=== PATIENT | male | born 1955 | race Caucasian/White ===

== ENCOUNTER 2019-09-30 01:58 | Outpatient (CLI) | payer OTHER, SELFPAY ==
[2019-09-30 18:54] LABS: SARS-CoV-2 RNA PCR Negative
== END 2019-09-30 01:59 | disposition home or self-care (01) ==
LOC: ANHCOVIDDT 01:58
PROVIDERS: PCP Family Medicine; Visit Provider Surgery Plastic and Reconstructive Surgery
DX: Z01.812 Encounter for preprocedural laboratory examination (principal); Z20.828 Contact with and (suspected) exposure to other viral communicable diseases
CPT/HCPCS: 87635; C9803; U0003

== ENCOUNTER 2019-10-02 01:10 | Day surgery (SDC) | payer OTHER, SELFPAY ==
[2019-09-19 11:19] VITALS: BMI 33.9
[2019-10-02] VITALS (7 sets, daily range): BP systolic 99–164; BP diastolic 62–86; PULSE 61–77; RESP 10–20; TEMP 36.1–36.4; O2SAT 96–100
[2019-10-02] MEDS: LACTATED RINGERS 1,000 ML 30 ML IV CONT ×2 (06:29→08:37)
--- NOTE | 2019-10-02 07:08 | WPDHPUPDATE1 ---
History and Physical Update Update Date/Time: 10/02/19 07:08 History and Physical has been reviewed, including an updated exam of the patient. There are NO changes in the patient's condition. Risks, benefits, and alternatives have been discussed and questions answered. Patient agrees to proceed with procedure.
--- NOTE | 2019-10-02 07:12 | WPDANESEPPF ---
Anes - Initial Pre Proc Eval Procedure: Operation Date: 10/02/19 07:30 Proposed Procedures p Left Index Finger Extensor Tendon Repair - Azam Ferris MD Date/Time: 10/02/19 07:12 Surgeon: Azam Ferris MD Pre Op Diagnosis: Left Extensor Tendon Injury Patient Data Age: 64 Gender: M Height: 6 ft Weight: 115.4 kg Allergies Allergy/AdvReac Type Severity Reaction Status Date / Time No Known Allergies Allergy Unknown Verified 10/02/19 06:17 Home Medications Medication Instructions Recorded Confirmed Type budesonide-formoterol HFA 160 2 puff INHALATION DAILY 04/08/19 10/02/19 History mcg-4.5 mcg/actuation aerosol inhaler levothyroxine 125 mcg tablet 125 mcg PO DAILY 04/08/19 10/02/19 History albuterol sulfate 90 mcg/actuation 1 puff INHALATION Q4H PRN #54 gm 05/12/19 10/02/19 Rx aerosol inhaler ondansetron HCl 4 mg tablet 4 mg PO Q6H PRN #30 tablet 09/24/19 Rx tramadol 50 mg tablet 50 mg PO Q6H PRN #15 tablet 09/24/19 09/24/19 Rx Patient hx anesthesia problems: none Family hx anesthesia problems: post op nausea/vomiting (sister) PMF Past Medical History Medical History Allergies Asthma Benign colon polyp Class 1 obesity with body mass index (BMI) of 33.0 to 33.9 in adult Colon cancer screening Compression fracture of lumbosacral spine with routine healing Hypothyroid Hypothyroidism, unspecified Laceration of left index finger with complication Mild intermittent asthma Neuropathy of both feet Obstructive sleep apnea Perianal rash Prostate cancer screening Surgical History Surgical History History of back surgery Nov 2014 Family History Family History Mother Asthma Diabetes mellitus Father Diabetes mellitus Heart disease Grandparent Cancer Grandparent Heart disease Grandparent No problems noted. Grandparent Diabetes mellitus Sibling Diabetes mellitus Breathing problem Sibling Breast cancer Sibling Hypertension Social History Social History Smoking status: Never smoker Alcohol intake: current Substance use: never Spiritual care concerns: No Anes - Eval Final PreProcedure Day of Procedure 10/02/19 07:12 Patient weight: obese Heart: regular rate and rhythm Lungs: clear to auscultation Airway: Mallampati scale class II Neurological: alert and oriented Last oral intake: >/= 8 hours ASA classification: III Emergent: no Anesthetic plan: proceed Anesthesia type and monitoring: general LMA and standard monitoring Informed Consent: The patient's anesthetic plan and its attendant risks and benefits were discussed with the patient/family/POA. Questions were solicited and answers provided to the satisfaction of the patient/family/POA.
[2019-10-02] MEDS: ceFAZolin 2 GM/D5W 50 ML 2 GM/50 ML BAG IVPB (07:23)
[2019-10-02] MEDS: KETOROLAC 30 MG/ML VIAL (*BKC) IV PUSH (07:43)
[2019-10-02] MEDS: LIDO 1%/EPINEPHRINE 1:100,000 20 ML VIAL 10 ML INFILTRATE (07:49)
--- NOTE | 2019-10-02 08:23 | PM.PROC ---
Procedure Note - Detailed Date of procedure: 10/02/19 Pre-op diagnosis: Left Extensor Tendon Injury Post-op diagnosis: same Procedure performed: 1. Left index finger zone 4 EDC repair. 2. Left index finger zone 4 EIP repair. Description of procedure: Patient was marked in the preoperative holding area with his verification. Risks, benefits, alternatives were again discussed. He understands there is risk of failure this repair. We discussed the limitations of the repair. He may need additional procedures. All questions answered to his satisfaction today and consent obtained. He was taken to the operating room placed supine on the operating room table. Anesthesia was provided by anesthesiology and prepped and draped in a standard sterile fashion. Surgical time-out was taken. 1% lidocaine and 0.25% Marcaine with epinephrine was used anesthetize locally. Esmarch was used to exsanguinate the arm and tourniquet inflated to 250 mmHg. Fifteen blade used to make an incision using a lazy-S incision over the PIP dorsal of the left index finger and proximal. Identified the proximal and distal end of the 2 extensor tendons. I repaired with two separate 4-0 modified Shea repair using Ethibond (polyester) suture. I then sutured over this with a 5 0 nylon. Released the tourniquet. Verified hemostasis. I did copiously irrigated with saline solution. The skin was closed with 5 0 nylon. Xeroform fluffs and a volar splint were placed followed by a lightly applied Amor wrap. He was taken to the PACU without difficulty. All instrument sponge counts were correct at the end of the case. Anesthesia: GLMA Surgeon: Azam Ferris MD Estimated blood loss (mL): 2 Drains: No Packing: No Pathology: none sent Complications: No immediate complications Condition: stable Disposition: PACU
== END 2019-10-02 09:40 | disposition home or self-care (01) ==
PROVIDERS: PCP Family Medicine; Visit Provider Surgery Plastic and Reconstructive Surgery
PROC: (CPT 26418; principal; 2019-10-02 07:30)
DX: S66.321A Laceration of extensor muscle, fascia and tendon of left index finger at wrist and hand level, initial encounter (principal); X58.XXXA Exposure to other specified factors, initial encounter; E03.9 Hypothyroidism, unspecified; J45.20 Mild intermittent asthma, uncomplicated; G62.9 Polyneuropathy, unspecified; G47.33 Obstructive sleep apnea (adult) (pediatric); E66.9 Obesity, unspecified; Z68.34 Body mass index [BMI] 34.0-34.9, adult
CPT/HCPCS: 26418 ×2; J0690; J1100; J1885; J2250; J2405; J2704; J3010; J7120

== ENCOUNTER 2019-12-22 14:08 | Outpatient (CLI) | payer OTHER, SELFPAY ==
--- NOTE | ~2019-12-22 | XR_ITS ---
EXAMINATION: XR chest 2V EXAM DATE: 12/22/2019 14:24 INDICATION: J20.9 - Acute bronchitis, unspecified. Cough. TECHNIQUE: Frontal and lateral projections of the chest obtained and reviewed. There is no prior kelsey dy for comparison. FINDINGS: There is patchy bilateral right-sided and left lower lung zone ill-defined reticulonodular airspace disease suspicious for acute infectious process. Could be bacterial or viral pneumonia. Ple ase clinically correlate. Cardiomediastinal silhouette is normal. There is no pneumothorax suspected. There is aortic arteriosclerosis. IMPRESSION: Patchy bilateral ill-defined reticular nodular opacities could be acute infectious proces s. Clinical correlation. Reviewed, dictated and finalized at location A. GER GAME IMPRESSION: Patchy bilateral ill-defined reticular nodular opacities could be a cute infectious process. Clinical correlation.
== END 2019-12-22 14:09 | disposition home or self-care (01) ==
LOC: ANHIMG 14:15
PROVIDERS: PCP Family Medicine; Visit Provider Family Medicine
DX: J20.9 Acute bronchitis, unspecified (principal); R91.8 Other nonspecific abnormal finding of lung field
CPT/HCPCS: 71046

== ENCOUNTER 2020-01-12 14:23 | Outpatient (CLI) | payer OTHER, SELFPAY ==
--- NOTE | ~2020-01-12 | XR_ITS ---
XR chest 2V 01/12/2020 14:41 Indication: Pneumonia Procedure: PA and lateral views of the chest Comparison: 12/22/2019 Findings: Patchy bilateral airspace consolidation, consistent with pneumonia. No pleural effusion or pneumothorax. No acute osseous abnormality. Impression: 1: Patchy bilateral airspace disease, compatible with pneumonia. No significant change. Reviewed, dictated and finalized at location B. [employer] WORK[employer] Impression: 1: Patchy bilateral airspace disease, compatible with pneumonia. No significant change.
== END 2020-01-12 14:24 | disposition home or self-care (01) ==
PROVIDERS: PCP Family Medicine; Visit Provider Family Medicine
DX: J12.9 Viral pneumonia, unspecified (principal); R91.8 Other nonspecific abnormal finding of lung field
CPT/HCPCS: 71046

== ENCOUNTER 2020-01-16 13:30 | Outpatient (CLI) | payer OTHER, SELFPAY ==
--- NOTE | ~2020-01-16 | CT_ITS ---
EXAMINATION: CT chest wo con EXAM DATE: 01/16/2020 13:56 INDICATION: J12.9 - Viral pneumonia, unspecified TECHNIQUE: Spiral CT of the chest without contrast. Axial, coronal and sagittal images were reviewe d. Coronal maximum intensity pixel images of chest reviewed. The dose-length product (DLP) for this examination was 665.20 mGy-cm. The exposure was tailored according to patient size (auto mA exposur e control), and iterative reconstruction (ASIR) was used as additional dose reduction technique. Kimberly elation is made to chest x-ray 01/12/2020. FINDINGS: There is moderate amount of bilateral perihilar predominant minimal centrilobular reticulo nodular airspace disease along with mediastinal and hilar lymphadenopathy. One of the larger mediasti nal lymph nodes measures 2.9 x 1.5 cm. Appearance is most consistent with sarcoidosis. Some other pos sibilities include silicosis, chronic infectious process such as TB/TENZIN. No axillary, supraclavicular or upper retroperitoneal lymphadenopathy. There are no pleural or pericardial effusions. Tracheobronchial tree is patent. There is no pneum othorax. Heart normal in size. There is mild coronary arterial calcification, arterial sclerosis. Upper abdomen is unremarkable. There is mild to moderate thoracic spondylosis without osteoblasti c or osteolytic lesions identified. IMPRESSION: Moderate amount of bilateral perihilar centrilobular opacities with mediastinal, hilar ly mphadenopathy. Most consistent with sarcoidosis. Other possibilities include silicosis, chronic infec tion. Lymphangitic carcinomatosis not entirely excludable. Please clinically correlate. Reviewed, dictated and finalized at location A. T REPRESENTATIVE IMPRESSION: Moderate amount of bilateral perihilar centrilobular opacities with mediastinal, hilar lymphadenopathy. Most consistent with sarcoidosis. Other po ssibilities include silicosis, chronic infection. Lymphangitic carcinomatosis n ot entirely excludable. Please clinically correlate.
== END 2020-01-16 13:31 | disposition home or self-care (01) ==
PROVIDERS: PCP Family Medicine; Visit Provider Family Medicine
DX: J12.9 Viral pneumonia, unspecified (principal)
CPT/HCPCS: 71250

== ENCOUNTER 2020-02-20 14:43 | Emergency (ER) | payer OTHER, SELFPAY ==
[2020-02-20] VITALS (7 sets, daily range): BP systolic 118–156; BP diastolic 65–85; PULSE 75–97; RESP 16–17; TEMP 36.6; O2SAT 94–100
--- NOTE | ~2020-02-20 | US_ITS ---
EXAMINATION: US abdomen limited EXAM DATE: 02/20/2020 18:00 INDICATION: Right upper quadrant pain. TECHNIQUE: Multiple grayscale and Doppler images of the abdomen right upper quadrant were obtained (b y a technologist who performed the scan) and subsequently reviewed. There is no prior study for gloria david. FINDINGS: The pancreatic head and body are normal in appearance. The pancreatic tail is not visualized. The l iver has normal echogenicity and contour. There is a 10 mm liver cyst. There is no evidence of intr ahepatic biliary duct dilation. Portal venous flow was seen in the hepatopedal, normal direction and has normal Doppler waveform. No right-sided hydronephrosis. Common bile duct measures 4 mm, which is normal. The gallbladder wall is normal in thickness, with ex pected amount of distention. No sonographic evidence of pericholecystic fluid. There is no cholelit hiases. Technologist performing exam reports patient did not demonstrate sonographic Gerber's sign. Please note that this sign is less reliable in patients who have received pain medication. IMPRESSION: 1. Unremarkable abdominal ultrasound exam. Reviewed, dictated and finalized at location A. [employer]
[2020-02-20 15:47] LABS: Basophils Absolute Auto 0.1 K/mm3 (0.0-0.1); Eosinophils Absolute Auto 0.7 K/mm3 (0-0.3); Eosinophils Percent Auto 6.7 % (0-4.4); Hematocrit 46.3 % (42.0-52.0); Hemoglobin 15.9 g/dL (14.0-18.0); Immature Granulocyte Absolute 0.08 K/mm3 (0.00-0.031); Immature Granulocyte Percent A 0.8 % (0-0.5); Lymphocytes Percent Auto 11.5 % (18.3-44.2); Mean Corpuscular HGB Conc 34.3 g/dl (32-36); Mean Corpuscular Hemoglobin 32.7 pg (26-34); Mean Corpuscular Volume 95.3 fl (80-100); Mean Platelet Volume 10.6 fl (7.4-10.4); Monocytes Absolute Auto 1.2 K/mm3 (0.1-0.6); Monocytes Percent Auto 11.1 % (2.6-8.5); Neutrophils Absolute Auto 7.2 K/mm3 (1.3-6.7); Neutrophils Percent Auto 68.9 % (45.5-73.1); Platelet Count Result 282 k/mm3 (150-375); Red Blood Count 4.86 M/mm3 (4.6-6.20); Red Cell Distribution Width 11.9 % (11.5-14.5); White Blood Count 10.4 K/mm3 (4.5-10.0)
[2020-02-20 16:02] LABS: Alanine Aminotransferase 29 U/L (4-50); Albumin Level 4.2 g/dL (3.5-5.1); Alkaline Phosphatase 77 U/L (38-126); Anion Gap 6 mmol/L (8-16); Aspartate Amino Transferase 30 U/L (17-59); Bilirubin,Total 0.5 mg/dL (0.2-1.3); Blood Urea Nitrogen 18 mg/dL (9-20); Calcium 9.5 mg/dL (8.4-10.2); Carbon Dioxide 31 mmol/L (22-30); Chloride 103 mmol/L (98-107); Estimated CRCL calculation 80 ml/min; Estimated Glomerular Filt Rate > 60; Glucose 106 mg/dL (75-110); Lipase 51 U/L (23-300); Sodium 140 mmol/L (137-145)
[2020-02-20 16:14] LABS: Add Urine Microscopic? NO; Appearance Urine Clear (Clear); Bacteria Urine Trace /hpf; Bilirubin Urine Negative (Negative); Blood Urine Negative (Negative); Color Urine Yellow (Yellow); Glucose Urine UA Negative (Negative); Hyaline Casts Urine 15-19 /lpf; Ketones Urine Negative (Negative); Leukocyte Esterase Ur Negative LEU/UL (Negative); Mucus Urine Few /lpf; Nitrate Urine Negative (Negative); Protein Urine Negative (Negative); RBC Urine 0-2 /hpf (0-2); Specific Grav Ur 1.024 (1.001-1.035); Urobilinogen Urine Negative mg/dL (<2.0); WBC Urine 0-3 /hpf
--- NOTE | 2020-02-20 17:17 | ED.ABDPAIN ---
HPI - Abdominal Pain General Chief Complaint: Abdominal Pain Stated Complaint: ruq abd pain Time Seen by Provider: 02/20/20 16:45 History of Present Illness HPI narrative: 64 yo male w/ h/o deafness s/o cochlear implant presents to the ED for abdominal pain. He has had RUQ pain for the past 2 weeks. It is constant. Mild-moderate. No radiation. No exacerbating or alleviating factors. No nausea,vomiting, diarrhea, fever. He reports one similar thing years ago that resolved spontaneously. He just recovered from pneumonia. Related Data Allergies Allergy/AdvReac Type Severity Reaction Status Date / Time No Known Allergies Allergy Unknown Verified 02/20/20 15:31 Review of Systems Review of Systems: All systems reviewed & are unremarkable except as noted in HPI and below Constitutional: Constitutional: Denies fever(s) and Denies weakness Cardiovascular: Cardiovascular: Denies chest pain Respiratory: Respiratory: Denies chest congestion, Denies cough and Denies dyspnea Gastrointestinal: Gastrointestinal: Reports abdominal pain, Reports bloating, Denies constipation, Denies diarrhea, Denies nausea and Denies vomiting Genitourinary: Genitourinary: Denies hematuria and Denies dysuria Musculoskeletal: Musculoskeletal: Denies back pain Neurologic: Denies dizziness and Denies weakness PMF Past Medical History Medical History Abnormal fasting glucose Acute bronchitis Allergies Asthma Benign colon polyp Class 1 obesity with body mass index (BMI) of 33.0 to 33.9 in adult Colon cancer screening Compression fracture of lumbosacral spine with routine healing COVID-19 Encounter for screening for other viral diseases Hypothyroid Hypothyroidism, unspecified Laceration of left index finger with complication Mild intermittent asthma Neuropathy of both feet Obstructive sleep apnea Perianal rash Prostate cancer screening Seasonal allergic rhinitis Viral pneumonia Surgical History Surgical History History of back surgery Nov 2014 Family History Family History Mother Asthma Diabetes mellitus Father Diabetes mellitus Heart disease Grandparent Cancer Grandparent Heart disease Grandparent No problems noted. Grandparent Diabetes mellitus Sibling Diabetes mellitus Breathing problem Sibling Breast cancer Sibling Hypertension Social History Social History Smoking status: Never smoker Alcohol intake: current Substance use: never Gender identity (if verbalized by the patient): Male Spiritual care concerns: No Exam Const: General: healthy appearing, no acute distress and alert Orientation/consciousness: patient oriented x3 HENMT: Head: normal to inspection Resp: Effort & Inspection: normal respiratory effort Auscultation: clear to auscultation bilaterally, no rales, no rhonchi and no wheezes Cardio: Jugular venous distension: no JVD Rate: regular rate Rhythm: regular rhythm Heart sounds: no murmurs GI: Inspection: non-distended GI Palp: Yes Soft to palpation and No Tenderness to palpation present (GI) Skin: General skin exam: normal color Neuro: General: patient oriented x3, moves all extremities, no focal motor deficits and CN's II-XI intact bilaterally Speech: normal speech Extrem: General: no edema Psych: Appearance: well kempt Affect: normal affect Course Vital Signs Vital signs: Vital Signs Temperature 36.6 C 02/20/20 15:27 Pulse Rate 97 02/20/20 15:27 Respiratory Rate 16 02/20/20 15:27 Blood Pressure 146/85 H 02/20/20 15:27 Pulse Oximetry 94 02/20/20 15:27 Temperature 36.6 C 02/20/20 15:27 Pulse Rate 75 02/20/20 18:33 Respiratory Rate 16 02/20/20 18:33 Bloo
== END 2020-02-20 18:34 | disposition home or self-care (01) ==
PROVIDERS: Emergency Provider Emergency Medicine; PCP Family Medicine
DX: R10.11 Right upper quadrant pain (principal); Z86.010 Personal history of colon polyps; E03.9 Hypothyroidism, unspecified; J45.20 Mild intermittent asthma, uncomplicated; G62.9 Polyneuropathy, unspecified; G47.33 Obstructive sleep apnea (adult) (pediatric); E66.9 Obesity, unspecified; Z68.33 Body mass index [BMI] 33.0-33.9, adult
CPT/HCPCS: 36415; 76705; 80053; 81003; 83690; 85025; 99284

== ENCOUNTER 2020-04-02 13:46 | Outpatient (CLI) | payer OTHER, SELFPAY ==
--- NOTE | ~2020-04-02 | CT_ITS ---
EXAMINATION: CT abdomen pelvis wo con DATE: 04/02/2020 14:26 INDICATION: Right-sided abdominal pain for one month TECHNIQUE: Computed tomography (CT) of the abdomen and pelvis was performed without intravenous contr ast. Automated exposure control and iterative reconstruction technique were employed. Exam dose: 122 8.96 mGy-cm total exam DLP. COMPARISON: 02/20/2020 Limited abdominal ultrasound examination FINDINGS: There are patchy scattered tree-in-bud infiltrates with patchy consolidation involving the lingula, middle lobe and both lower lobes. Findings suggest bilateral pneumonia. Normal heart size. No pericardial or pleural effusion. Approximately 12 mm left hepatic cyst. The gallbladder is present. No bile duct or pancreatic duct dilatation. There is pancreatic atrophy. No pancreatic mass lesion or calcification is evident. Normal splenic size. An accessory splenule is noted. Normal morphology of the adrenal glands. No renal mass lesion is evident on this limited noncontrast examination. No urinary tract calculus or hydroureteronephrosis. The urinary bladder is unremarkable. Prostate calcifications. Normal caliber and mild atherosclerotic calcification of the abdominal aorta. No intraperitoneal or r etroperitoneal or pelvic mass lesion or adenopathy or ascites is evident. Diverticulosis of the colon; no CT evidence of diverticulitis. Normal appendix. No bowel obstruction, bowel wall thickening, pneumatosis or intraperitoneal free air. Moderately severe degenerative disc disease and mild retrolisthesis at L1-2. Mild anterior wedge compression fracture deformity of T11. Prominent burst fracture deformity at L3. Pedicle screws are noted at L4. Pedicle screw tracts are noted at L2, screws no longer present. Prominent osteoarthritic changes at the apophyseal joints of the lumbar and lumbosacral spine. No suspicious osteolytic or osteoblastic lesions. IMPRESSION: Patchy bilateral tree-in-bud lower lung infiltrates consistent with pneumonia 12 mm hepatic cyst Diverticulosis of the colon; no CT evidence of diverticulitis Normal appendix Fracture deformities of T11 and particularly L3 Pedicle screws at L4; removal of pedicle screws at L2 Reviewed, dictated and finalized at Location A. Reviewed, dictated and finalized at location B. [employer] IMPRESSION: Patchy bilateral tree-in-bud lower lung infiltrates consistent wit h pneumonia 12 mm hepatic cyst Diverticulosis of the colon; no CT evidence of diverticulitis Normal appendix Fracture deformities of T11 and particularly L3 Pedicle screws at L4; removal of pedicle screws at L2
== END 2020-04-02 13:47 | disposition home or self-care (01) ==
PROVIDERS: PCP Family Medicine; Visit Provider Family Medicine
DX: R10.9 Unspecified abdominal pain (principal); K57.30 Diverticulosis of large intestine without perforation or abscess without bleeding; K76.9 Liver disease, unspecified; R91.8 Other nonspecific abnormal finding of lung field
CPT/HCPCS: 74176

== ENCOUNTER 2020-04-28 14:29 | Outpatient (CLI) | payer OTHER, SELFPAY ==
--- NOTE | 2020-04-28 16:18 | P.PCNPFT_ITS ---
PFT Interpretation This is a pulmonary function test with pre and post-bronchodilator spirometry, plethysmography and diffusing capacity. The test was performed and results interpreted in accordance with the 2019 and 2005 ATS/ERS Task Force guidelines respectively using the Global Lung Function Initiative-2012 reference equations. Patient demonstrated good effort and c ooperation. Reproducibility criteria were met. The quality of the pre bronchodilator spirometry maneuver was Grade A and post bronchodilator spirometry maneuver was Grade A. Findings: Spirometry: there is decreased maximal expiratory airflow at all lung volumes with concave expiratory flow tracing. The inspiratory flow tracing is normal. The pre bronchodilator FVC is 3.29 L, 95% predicted. The pre bronchodilator FEV1 is 1.81 L, 67% predicted. The FEV1: FVC ratio is 55%. The post bronchodilator FVC is 3.54 L, representing an 8% increase. The post bronchodilator FEV1 is 1.90 L, representing a 5% increase. Plethysmography: The total lung capacity is 5.54 L, 101% predicted. The functional residual capacity is 2.63 L, 72% predicted. The residual volume is 2.23 L, 99% predicted. Diffusing capacity: The absolute diffusion capacity is 23.3, 95% predicted. The diffusing capacity corrected for alveolar volume is 5.41, 134% predicted. Impression: There is a moderate obstructive abnormality without significant improvement after inhaling a single dose of albuterol. The lung volumes are normal. The absolute diffusing capacity is normal and increased when corrected for alveolar volume. There are no prior studies for comparison
== END 2020-04-28 14:30 | disposition home or self-care (01) ==
PROVIDERS: PCP Family Medicine; Visit Provider Internal Medicine Pulmonary Disease
DX: R06.00 Dyspnea, unspecified (principal); R94.2 Abnormal results of pulmonary function studies
CPT/HCPCS: 94060; 94726; 94729

== ENCOUNTER 2020-06-09 10:34 | Outpatient (CLI) | payer OTHER, SELFPAY ==
--- NOTE | ~2020-06-09 | CT_ITS ---
EXAMINATION: CT diagnostic chest wo con EXAM DATE: 06/09/2020 10:52 INDICATION: R91.8 - Other nonspecific abnormal finding of lung field Moderate amount of bilateral p erihilar centrilobular opacities with mediastinal, hilar lymphadenopathy on prior CT. TECHNIQUE: Spiral CT of the chest without contrast. Axial, coronal and sagittal images of the chest were reviewed. Coronal maximum intensity pixel images of chest reviewed. The dose-length product ( DLP) for this examination was 623.01 mGy-cm. The exposure was tailored according to patient size (au to mA exposure control), and iterative reconstruction (ASIR) was used as additional dose reduction te chnique. Comparison is made to prior examination from 01/16/2020. FINDINGS: There is moderate amount of bilateral perihilar predominant centrilobular reticulonodular a irspace disease with some regions of confluence, mild interval improvement. There is mediastinal and hilar lymphadenopathy, mild interval improvement. For example a right lower paratracheal lymph node m easures 2.2 x 1.5 cm today, was 2.5 x 1.8 cm in January. Appearance is most consistent with sarcoido sis. Some other possibilities include silicosis, chronic infectious process such as TB/TENZIN. No axilla ry, supraclavicular or upper retroperitoneal lymphadenopathy. There are no pleural or pericardial effusions. Tracheobronchial tree is patent. There is no pneum othorax. Heart normal in size. There is mild coronary arterial calcification, arterial sclerosis. Several small liver cysts. There is mild to moderate thoracic spondylosis without osteoblastic or osteolytic lesions identified. IMPRESSION: Moderate amount of bilateral perihilar centrilobular opacities with mediastinal, hilar ly mphadenopathy, with mild interval improvement. Differential diagnosis includes sarcoidosis, silicosis , chronic infection. Reviewed, dictated and finalized at location A. IMPRESSION: Moderate amount of bilateral perihilar centrilobular opacities with mediastinal, hilar lymphadenopathy, with mild interval improvement. Differenti al diagnosis includes sarcoidosis, silicosis, chronic infection.
== END 2020-06-09 10:35 | disposition home or self-care (01) ==
LOC: ANHIMG 10:38
PROVIDERS: PCP Family Medicine; Visit Provider Internal Medicine Pulmonary Disease
DX: R91.8 Other nonspecific abnormal finding of lung field (principal)
CPT/HCPCS: 71250

== ENCOUNTER 2020-08-09 12:41 | Outpatient (CLI) | payer OTHER, SELFPAY ==
--- NOTE | 2020-08-09 17:11 | WPDPFTINT ---
PFT Procedure Performed PFT Procedure Performed Spirometry with Pre/Post Bronchodilator Plethysmography (Lung Vol) Diffusing Cap (DLCO) Flow Vol Loop PFT Interpretation This is a pulmonary function test with pre and post-bronchodilator spirometry, plethysmography and diffusing capacity. The test was performed and results interpreted in accordance with the 2019 and 2005 ATS/ERS Task Force guidelines respectively using the Global Lung Function Initiative-2012 reference equations. Patient demonstrated good effort and cooperation. Reproducibility criteria were met. The quality of the pre bronchodilator spirometry maneuver was Grade A and post bronchodilator spirometry maneuver was Grade A. Findings: Spirometry: there is decreased maximal expiratory airflow at all lung volumes with concave expiratory flow tracing. The pre bronchodilator FVC is 3.77 L, 91% predicted. The pre bronchodilator FEV1 was 2.08 L, 65% predicted. The FEV1: FVC ratio is 55%. The post bronchodilator FVC is 3.64 L, representing a 4% decrease. The post bronchodilator FEV1 is 2.14 L, representing a 3% increase. Plethysmography: The total lung capacity is 5.78 L, 89% predicted. The functional residual capacity is 2.43 L, 67% predicted. The residual volume is 1.97 L, 88% predicted. Diffusing capacity: The absolute diffusion capacity is 24.0, 83% predicted. The diffusing capacity corrected for alveolar volume is 5.25, 129% predicted. In comparison to previous pulmonary function test on 04/28/2020 the post bronchodilator FVC is unchanged from 3.54 L to 3.64 L. The post bronchodilator FEV1 is unchanged from 1.90 to 2.14 L. The total lung capacity is unchanged from 5.54 L to 5.78 L. The functional residual capacity is unchanged from 2.63 L to 2.43 L. The residual volume is unchanged from 2.23 L to 1.97 L. the absolute diffusion capacity is unchanged from 23.3 to 24.0. The diffusing capacity corrected for alveolar volume is unchanged from 5.41 to 5.25. Impression: There is a moderate obstructive abnormality without significant improvement after inhaling a single dose of albuterol. The lung volumes are normal. The diffusing capacity is normal. In comparison to the previous pulmonary function tests on 04/28/2020 there has been no significant change in the FVC, total lung capacity, functional residual capacity, residual volume, absolute diffusion capacity or diffusing capacity corrected for alveolar volume. Clinical correlation is recommended. There are no prior studies for comparison
== END 2020-08-09 12:42 | disposition home or self-care (01) ==
PROVIDERS: PCP Family Medicine; Visit Provider Internal Medicine Pulmonary Disease
DX: R06.00 Dyspnea, unspecified (principal); R94.2 Abnormal results of pulmonary function studies
CPT/HCPCS: 94060; 94726; 94729

== ENCOUNTER 2020-08-30 11:08 | Outpatient (CLI) | payer OTHER, SELFPAY ==
[2020-08-30 11:28] LABS: Basophils Absolute Auto 0.1 K/mm3 (0.0-0.1); Basophils Percent Auto 0.5 % (0.2-1.2); Eosinophils Percent Auto 0.1 % (0-4.4); Hematocrit 47.1 % (42.0-52.0); Hemoglobin 15.4 g/dL (14.0-18.0); Immature Granulocyte Percent A 1.4 % (0-0.5); Lymphocytes Absolute Auto 0.47 K/mm3 (0.9-3.2); Lymphocytes Percent Auto 3.2 % (18.3-44.2); Mean Corpuscular HGB Conc 32.7 g/dl (32-36); Mean Corpuscular Hemoglobin 32.6 pg (26-34); Mean Corpuscular Volume 99.8 fl (80-100); Mean Platelet Volume 10.6 fl (7.4-10.4); Monocytes Absolute Auto 0.2 K/mm3 (0.1-0.6); Monocytes Percent Auto 1.6 % (2.6-8.5); Neutrophils Absolute Auto 13.8 K/mm3 (1.3-6.7); Neutrophils Percent Auto 93.2 % (45.5-73.1); Platelet Count Result 240 k/mm3 (150-375); Red Blood Count 4.72 M/mm3 (4.6-6.20); Red Cell Distribution Width 12.2 % (11.5-14.5); White Blood Count 14.8 K/mm3 (4.5-10.0)
== END 2020-08-30 11:09 | disposition home or self-care (01) ==
LOC: ANHLAB 11:11
PROVIDERS: PCP Family Medicine; Visit Provider Internal Medicine Pulmonary Disease
DX: J44.9 Chronic obstructive pulmonary disease, unspecified (principal)
CPT/HCPCS: 36415; 85025

== ENCOUNTER 2020-08-31 15:37 | Outpatient (CLI) | payer OTHER, SELFPAY ==
[2020-09-03 23:58] LABS: Immunoglobulin E 542 kU/L (<=114)
== END 2020-08-31 15:38 | disposition home or self-care (01) ==
LOC: ANHLAB 15:38
PROVIDERS: PCP Family Medicine; Visit Provider Internal Medicine Pulmonary Disease
DX: B44.81 Allergic bronchopulmonary aspergillosis (principal)
CPT/HCPCS: 36415; 82785

== ENCOUNTER 2020-11-10 10:27 | Outpatient (CLI) | payer OTHER, SELFPAY ==
[2020-11-10 11:01] LABS: Basophils Absolute Auto 0.1 K/mm3 (0.0-0.1); Basophils Percent Auto 0.8 % (0.2-1.2); Eosinophils Absolute Auto 0.2 K/mm3 (0-0.3); Hematocrit 46.2 % (42.0-52.0); Hemoglobin 15.3 g/dL (14.0-18.0); Immature Granulocyte Absolute 0.08 K/mm3 (0.00-0.031); Immature Granulocyte Percent A 0.8 % (0-0.5); Lymphocytes Absolute Auto 0.59 K/mm3 (0.9-3.2); Lymphocytes Percent Auto 5.9 % (18.3-44.2); Mean Corpuscular HGB Conc 33.1 g/dl (32-36); Mean Corpuscular Hemoglobin 31.8 pg (26-34); Monocytes Absolute Auto 0.8 K/mm3 (0.1-0.6); Neutrophils Absolute Auto 8.3 K/mm3 (1.3-6.7); Neutrophils Percent Auto 82.5 % (45.5-73.1); Platelet Count Result 270 k/mm3 (150-375); Red Blood Count 4.81 M/mm3 (4.6-6.20); White Blood Count 10.1 K/mm3 (4.5-10.0)
[2020-11-15 05:04] LABS: Immunoglobulin E 780 kU/L (<=114)
== END 2020-11-10 10:28 | disposition home or self-care (01) ==
PROVIDERS: PCP Family Medicine; Visit Provider Internal Medicine Pulmonary Disease
DX: J44.9 Chronic obstructive pulmonary disease, unspecified (principal); J45.909 Unspecified asthma, uncomplicated
CPT/HCPCS: 36415; 82785; 85025

== ENCOUNTER 2020-12-02 09:53 | Outpatient (CLI) | payer OTHER, SELFPAY ==
--- NOTE | ~2020-12-02 | CT_ITS ---
EXAMINATION: CT diagnostic chest wo con DATE: 12/02/2020 10:29 INDICATION: Allergic bronchopulmonary aspergillosis TECHNIQUE: Computed tomography (CT) of the chest was performed without intravenous contrast. The dose -length product (DLP) was 574.03 mGy-cm. Automated exposure control and iterative reconstruction tech nique were employed. COMPARISON: 06/09/2020, 01/16/2020 FINDINGS: Again seen are widespread small pulmonary nodules throughout the lungs with an upper lung z one predominance. More confluent airspace opacities are seen in the upper lobes which are stable. Med iastinal lymphadenopathy persists without significant change. There is no pleural effusion or pneumot horax. The heart size is normal. There is a 10 mm cyst in the liver. Moderate thoracic spondylosis is noted. IMPRESSION: 1. Stable widespread pulmonary nodules, confluent airspace opacities of the upper lobes, and mediasti nal lymphadenopathy. Differential includes sarcoidosis, silicosis, and pneumoconiosis. Clinical histo ry is allergic bronchopulmonary aspergillosis however this would be an atypical appearance. Reviewed, dictated and finalized at location A. IMPRESSION: 1. Stable widespread pulmonary nodules, confluent airspace opacities of the upp er lobes, and mediastinal lymphadenopathy. Differential includes sarcoidosis, s ilicosis, and pneumoconiosis. Clinical history is allergic bronchopulmonary asp ergillosis however this would be an atypical appearance.
== END 2020-12-02 09:54 | disposition home or self-care (01) ==
LOC: ANHIMG 10:02
PROVIDERS: PCP Family Medicine; Visit Provider Internal Medicine Pulmonary Disease
DX: B44.81 Allergic bronchopulmonary aspergillosis (principal)
CPT/HCPCS: 71250

== ENCOUNTER 2020-12-20 07:53 | Outpatient (CLI) | payer OTHER, SELFPAY ==
[2020-12-20 09:04] LABS: Basophils Absolute Auto 0.1 K/mm3 (0.0-0.1); Basophils Percent Auto 0.7 % (0.2-1.2); Eosinophils Absolute Auto 0.5 K/mm3 (0-0.3); Hemoglobin 14.4 g/dL (14.0-18.0); Immature Granulocyte Absolute 0.12 K/mm3 (0.00-0.031); Immature Granulocyte Percent A 1.2 % (0-0.5); Lymphocytes Absolute Auto 1.06 K/mm3 (0.9-3.2); Lymphocytes Percent Auto 10.3 % (18.3-44.2); Mean Corpuscular HGB Conc 32.7 g/dl (32-36); Mean Corpuscular Hemoglobin 32.3 pg (26-34); Mean Corpuscular Volume 98.7 fl (80-100); Monocytes Absolute Auto 1.1 K/mm3 (0.1-0.6); Monocytes Percent Auto 10.4 % (2.6-8.5); Neutrophils Absolute Auto 7.4 K/mm3 (1.3-6.7); Neutrophils Percent Auto 72.4 % (45.5-73.1); Platelet Count Result 227 k/mm3 (150-375); Red Blood Count 4.46 M/mm3 (4.6-6.20); White Blood Count 10.3 K/mm3 (4.5-10.0)
[2020-12-20 09:10] LABS: Partial Thromboplastin Time 22.4 SECONDS (22.3-36.8); Prothrombin Time 12.8 Seconds (11.1-14.7)
[2020-12-20 09:36] LABS: Alanine Aminotransferase 24 U/L (4-50); Albumin Level 3.8 g/dL (3.5-5.1); Alkaline Phosphatase 65 U/L (38-126); Anion Gap 7 mmol/L (8-16); Aspartate Amino Transferase 27 U/L (17-59); Bilirubin,Total 0.5 mg/dL (0.2-1.3); Blood Urea Nitrogen 19 mg/dL (9-20); Calcium 9.4 mg/dL (8.4-10.2); Carbon Dioxide 29 mmol/L (22-30); Chloride 105 mmol/L (98-107); Estimated Glomerular Filt Rate > 60; Glucose 125 mg/dL (65-110); Sodium 141 mmol/L (137-145)
[2020-12-23 10:30] LABS: ANCA Screen Negative (Negative)
[2020-12-23 11:04] LABS: Immunoglobulin A 416 mg/dL (70-320); Immunoglobulin G 1002 mg/dL (600-1540); Immunoglobulin M 35 mg/dL (50-300)
[2020-12-23 20:29] LABS: Immunoglobulin E 857 kU/L (<=114)
== END 2020-12-20 07:54 | disposition home or self-care (01) ==
LOC: ANHLAB 07:56
PROVIDERS: PCP Family Medicine; Visit Provider Internal Medicine Pulmonary Disease
DX: B44.81 Allergic bronchopulmonary aspergillosis (principal)
CPT/HCPCS: 36415; 80053; 82784; 82785; 85025; 85610; 85730; 86021

== ENCOUNTER 2020-12-30 00:27 | Day surgery (SDC) | payer OTHER, SELFPAY ==
[2020-12-16 14:55] VITALS: BMI 34.3
--- NOTE | 2020-12-29 14:22 | WPDANESEPPF ---
Anes - Initial Pre Proc Eval Procedure: Operation Date: 12/30/20 09:45 Proposed Procedures p Flexible Bronchoscopy w Fluoro - Higinio Woodall MD Date/Time: 12/29/20 14:22 Surgeon: Higinio Woodall MD Pre Op Diagnosis: allergic bronchopulmonary aspergillosis Patient Data Age: 65 Gender: M Height: 1.85 m Weight: 118 kg Allergies Allergy/AdvReac Type Severity Reaction Status Date / Time No Known Allergies Allergy Unknown Verified 12/30/20 07:53 Home Medications Medication Instructions Recorded Confirmed Type albuterol sulfate 90 mcg/actuation 2 puff INHALATION Q4H PRN #54 gm 12/15/19 12/30/20 Rx aerosol inhaler fluticasone propionate 50 1 spray NASAL BID #54.6 ml 05/03/20 12/30/20 Rx mcg/actuation nasal spray,suspension levothyroxine 200 mcg tablet 200 mcg PO DAILY #90 tablet 05/03/20 12/30/20 Rx budesonide-formoterol [Symbicort] 2 puff INHALATION BID 12/16/20 12/30/20 History prednisone 20 mg PO .every other day 12/16/20 12/30/20 History Patient hx anesthesia problems: none Family hx anesthesia problems: none Results Review: All pre-operative results and documents have been reviewed as part of the pre-operative evaluation. [facility] Past Medical History Medical History Abdominal pain Abnormal fasting glucose Acute bronchitis Benign colon polyp BMI 36.0-36.9,adult Candidiasis Class 1 obesity with body mass index (BMI) of 33.0 to 33.9 in adult Colon cancer screening Compression fracture of lumbosacral spine with routine healing Contracture of joint of finger Encounter for screening for other viral diseases Hypothyroid Hypothyroidism, unspecified Injury of extensor tendon of left hand Laceration of left index finger with complication Mild intermittent asthma Neuropathy of both feet Obstructive sleep apnea Perianal rash Prostate cancer screening Seasonal allergic rhinitis Skin tags, multiple acquired Viral pneumonia Surgical History Surgical History History of back surgery Nov 2014 Family History Family History Mother Asthma Diabetes mellitus Father Diabetes mellitus Heart disease Grandparent Cancer Grandparent Heart disease Grandparent No problems noted. Grandparent Diabetes mellitus Sibling Diabetes mellitus Breathing problem Sibling Breast cancer Sibling Hypertension Social History Social History (Reviewed 11/10/20 @ 09:46 by Gricelda Mccartney [facility]) Smoking status: Never smoker Alcohol intake: former Alcohol use details: 2-3 [place] a month Substance use: never Substance use type: does not use Living arrangements: with family Gender identity (if verbalized by the patient): Male Spiritual care concerns: No Anes - Eval Final PreProcedure Day of Procedure 12/29/20 14:22 Patient weight: obese Heart: regular rate and rhythm Lungs: clear to auscultation and normal air movement Airway: Mallampati scale class II Neurological: alert and oriented Last oral intake: >/= 8 hours ASA classification: III Emergent: no Anesthetic plan: proceed Anesthesia type and monitoring: general LMA Results Review: All pre-operative results and documents have been reviewed as part of the pre-operative evaluation. Informed Consent: The patient's anesthetic plan and its attendant risks and benefits were discussed with the patient/family/POA. Questions were solicited and answers provided to the satisfaction of the patient/family/POA.
[2020-12-30] VITALS (7 sets, daily range): BP systolic 123–157; BP diastolic 67–82; PULSE 65–80; RESP 18; TEMP 36–36.5; O2SAT 97–100; BMI 35.6
--- NOTE | ~2020-12-30 | XR_ITS ---
EXAMINATION: XR fl bronchoscopy w imaging EXAM DATE: 12/30/2020 10:22 INDICATION: Right-sided bronchoscopy, fluoroscopy. Chronic airspace disease. TECHNIQUE: Fluoroscopy used during XR fl bronchoscopy w imaging performed by Dr. Higinio Woodall MD. Radiologist was not present for the imaging or procedure. Total fluoroscopic time of 164 second s. The DAP for this procedure was 1.0 mGym2. A total of 3 images sent to PACS from the exam. Correl ation is made to chest CT 12/02/2020. FINDINGS: Several images demonstrate bronchoscopy scope and right lower lobe bronchus and right basi lar airspace disease. Correlate with procedure note. IMPRESSION: Fluoroscopy used during bronchoscopy. Reviewed, dictated and finalized at location B. S[employer] C[employer]IAN
--- NOTE | ~2020-12-30 | XR_ITS ---
EXAMINATION: XR chest 1V portable DATE: 12/30/2020 08:58 INDICATION: Diffuse lung disease. TECHNIQUE: A single frontal view of the chest was obtained. COMPARISON: Chest 2 views 01/12/2020, chest CT 12/02/2020 FINDINGS: There are patchy airspace opacities and nodules throughout the lungs bilaterally with a per ilymphatic distribution by CT. No pleural effusion or pneumothorax. The heart size is normal. IMPRESSION: 1. Chronic diffuse lung disease. The differential diagnosis includes sarcoidosis, silicosis/pneumocon iosis, and chronic infection. Reviewed, dictated and finalized at location A. E SHOE EXAMINER IMPRESSION: 1. Chronic diffuse lung disease. The differential diagnosis includes sarcoidosi s, silicosis/pneumoconiosis, and chronic infection.
--- NOTE | ~2020-12-30 | XR_ITS ---
XR chest 1V portable DATE: 12/30/2020 10:35 INDICATION: Postbronchoscopy examination TECHNIQUE: Portable AP chest on 12/30/2020 at 1028 hours COMPARISON: 12/30/2020 portable AP chest at 0854 hours prior to bronchoscopy 12/02/2020 CT chest FINDINGS: There is no evidence of postbronchoscopy pneumothorax. Patchy infiltrates are again noted throughout both lungs. There is interval mild consolidating infilt rate in the middle lobe since the earlier radiograph of same date prior to bronchoscopy. Heart and mediastinum are unchanged. IMPRESSION: No evidence of postbronchoscopy pneumothorax Interval mild consolidating infiltrate of the middle lobe Persistent bilateral patchy pulmonary infiltrates Reviewed, dictated and finalized at location A. [employer]
[2020-12-30] MEDS: LACTATED RINGERS 1,000 ML 150 ML IV CONT (08:09)
--- NOTE | 2020-12-30 08:13 | ECG_ITS ---
Measurements Intervals [place] Rate: 76 P: 46 DE: 195 QRS: -2 QRSD: 105 T: 22 QT: 356 QTc: 402 Interpretive Statements SINUS RHYTHM BASELINE ARTIFACT- I, II, III, AVR, AVL, AVF, V1-V3 NORMAL ECG Electronically Signed On 12-30-2020 8:55:01 [employer] by Damian Ortiz D.O.
--- NOTE | 2020-12-30 08:33 | SUR.PREOP ---
EKG done. Normal sinus rhythm.
--- NOTE | 2020-12-30 08:59 | PM.IMHP ---
H&P: HPI History of Present Illness Date/Time: 12/30/20 08:59 Chief Complaint: ABPA Narrative: 65-year-old man with a history of allergic bronchopulmonary aspergillosis with continued eosinophilia and high IgE E levels despite greater than 6 months of steroids. On 12/07/2020: I called patient to discuss this testing and he told me that over the last week he has been having more shortness of breath both sitting and with ambulation. He has no wheezing, no fever, no chills, no phlegm production. I have told him to increase his prednisone to 40 mg a day starting on 12/07. I reviewed the CT scan results with him and given the somewhat atypical pattern for ABPA I recommended a bronchoscopy with BAL looking for alternative diagnosis. I described benefits and risks of the bronchoscopy with the patient and he is willing to proceed. I will see how patient response to the prednisone 40 and tentatively schedule the bronchoscopy for 12/30 at 9:30 a.m.. On 12/10 I called the patient today and he said that after taking 40 mg of prednisone on 12/07 he felt much much better by that evening approximately 8 hours later. Patient continues to feel much improved and denies any fever, chills, shortness of breath. He still has an occasional heavy sensation when he breathes. I have instructed him to take 40 mg of prednisone today for total of 5 days and then to decrease to 40 mg every other day. We will continue with the plan for bronchoscopy on 12/30 at 9:30 a.m.. In retrospect he tells me that once he decreased his prednisone to 10 mg every other day that he started to notice return of his respiratory symptoms. I have instructed him to call us should his symptoms change. Today the patient states that he continues to feel well on 40 mg p.o. prednisone every other day. He states that he has no respiratory limitations in his daily activities. He worked for few hours in the [employer] yesterday. He does cough up phlegm 1 time a day which is described as white and clear. He never has hemoptysis and he never has hard mucus plugs. Occasionally does have a little chest tightness. He denies fever chills cough rigors or chest pains today. Review of Systems Review of Systems: All systems reviewed & are unremarkable except as noted in HPI and below Eyes: Eyes: Reports no additional eye complaints ENT: Reports system reviewed and no additional complaints, except as documented Cardiovascular: Cardiovascular: Reports no additional cardiovascular complaints Respiratory: Respiratory: Reports no additional respiratory complaints Gastrointestinal: Gastrointestinal: Reports no additional gastrointestinal complaints Musculoskeletal: Musculoskeletal: Reports no additional musculoskeletal complaints Integumentary/Breasts: Skin/Breast: Reports system reviewed and no additional complaints, except as docu Neurologic: Reports system reviewed and no additional complaints, except as documented Psychiatric: Psychiatric: Reports no additional psychiatric complaints Endocrine: Endocrine: Reports no additional endocrine complaints [facility] Past Medical History Medical History Abdominal pain Abnormal fasting glucose Acute bronchitis Benign colon polyp BMI 36.0-36.9,adult Candidiasis Class 1 obesity with body mass index (BMI) of 33.0 to 33.9 in adult Colon cancer screening Compression fracture of lumbosacral spine with routine healing Contracture of joint of finger Encounter for screening for other viral diseases Hypothyroid Hypothyroidism, unspecified Injury of extensor tendon of left hand Laceration of left index finger with complication Mild intermittent asthma Neuropathy of both feet Obstructive sleep apnea Perianal rash Prostate cancer screening Seasonal allergic rhinitis Skin tags, multiple acquired Viral pneumonia Surgical History Surgical History History of
[2020-12-30] MEDS: LIDOCAINE HCL 2% PF INJ 5 ML VIAL 8 ML XX (10:00)
--- NOTE | 2020-12-30 10:24 | SUR.PHASEII ---
ARRIVED PER STRETCHER. LUNG SOUNDS WHEEZY BILATERALLY. PT ALERT, VITAL SIGNS STABLE. SKIN WARM, DRY TO TOUCH, PINK. NO SHORTNESS OF BREATH, NO C/O PAIN.
--- NOTE | 2020-12-30 10:35 | SUR.OPER ---
1000-8CC 2% LIDOCAINE GIVEN. 160CC OF NS INTRABRACHIAL GIVEN WITH 40CC OUT IN WASHINGS AND BAL.
[2020-12-30 15:02] LABS: Appearance Bronchial Fluid Clear; Color Bronchial Fluid Colorless; Eosinophils Bronchial Fluid 6 %; Lymphocytes Bronchial Fluid 25 %; Macrophages Bronchial Fluid 11; Neutrophils Bronchial Fluid 50 %; Source Bronchial Fluid Bronchial Lavage
== END 2020-12-30 11:36 | disposition home or self-care (01) ==
PROVIDERS: PCP Family Medicine; Visit Provider Internal Medicine Pulmonary Disease
PROC: BB1DZZZ Fluoroscopy of Upper Airways (ICD-10-PCS; CPT 31624; principal; 2020-12-30 09:30)
DX: J98.4 Other disorders of lung (principal); Z79.51 Long term (current) use of inhaled steroids; E03.9 Hypothyroidism, unspecified; G47.33 Obstructive sleep apnea (adult) (pediatric); G62.9 Polyneuropathy, unspecified; E66.9 Obesity, unspecified; Z68.35 Body mass index [BMI] 35.0-35.9, adult
CPT/HCPCS: 31624; 31629; 71045; 85999; 87015; 87070; 87102; 87116; 87205; 87206; 88104; 88108; 88184; 88305; 88312; 93005; J1100; J2001; J2405; J2704; J7040; J7120

== ENCOUNTER 2021-06-02 08:45 | Outpatient (CLI) | payer OTHER, SELFPAY ==
--- NOTE | ~2021-06-02 | CT_ITS ---
EXAMINATION:CT diagnostic chest wo con DATE: 06/02/2021 09:03 INDICATION: Allergic bronchopulmonary aspergillosis. TECHNIQUE: Computed tomography (CT) of the chest was performed without intravenous contrast. Automate d exposure control and iterative reconstruction technique were employed. The dose-length product (DLP ) was 630.80 mGy-cm. COMPARISON: Chest CT 12/02/2020 FINDINGS: There are widespread nodules and airspace opacities in the lungs in a perilymphatic distrib ution. There is no bronchiectasis. No pleural effusion. 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 There is mild venous hilar lymphadenopathy. The largest noncalcified node measures 14 x 22 mm. The heart size is normal. There are coronary artery c alcifications. No pericardial effusion. There is a 12 mm cyst in the liver. There is mild thoracic sp ondylosis. IMPRESSION: 1. Stable diffuse lung disease and stable mild mediastinal lymphadenopathy, most likely sarcoid or si licosis. Reviewed, dictated and finalized at location B. IMPRESSION: 1. Stable diffuse lung disease and stable mild mediastinal lymphadenopathy, mos t likely sarcoid or silicosis.
--- NOTE | 2021-06-07 19:02 | WPDPFTINT ---
PFT Procedure Performed PFT Procedure Performed Spirometry with Pre/Post Bronchodilator Plethysmography (Lung Vol) Diffusing Cap (DLCO) Flow Vol Loop PFT Interpretation DOS: 06/02/2021 REQUESTING: Dr Higinio Woodall REASON FOR TESTING: Asthma, ABPA PULMONARY FUNCTION TESTS Results are reliable and reproducible. Spirometry: Pre-bronchodilator s 2.25 L 61% predicted moderately decreased. FVC is 78% predicted, 3.77L. The FEV1/FVC ratio os 60%. After bronchodilator administration, there is a non-statistically significant increased in FVC and FEV1. Lung volumes: Total lung capacity is 85% predicted, 6.25 L. The functional residual capacity is 73% predicted. The residual volume is 94% predicted. Diffusion: DLCO is 82% predicted, normal. Flow volume loop: The flow volume loop shows scooping of the expiratory limb consistent with airflow obstruction. IMPRESSION: This pulmonary function study shows a moderate obstructive ventilatory impairment without significant change following bronchodilator administration. The lung volumes and diffusion capacity are normal. Comparing this to a prior pulmonary function study on 08/09/2020, the FEV1, FVC, TLC, RV and DLCO are similar. Lack of response to bronchodilator should not preclude use if clinically indicated. Amanda Boothe MD
== END 2021-06-02 08:46 | disposition home or self-care (01) ==
PROVIDERS: PCP Family Medicine; Visit Provider Internal Medicine Pulmonary Disease
DX: R06.00 Dyspnea, unspecified (principal); J98.4 Other disorders of lung
CPT/HCPCS: 71250; 94060; 94726; 94729

== ENCOUNTER 2021-06-14 14:18 | Outpatient (CLI) | payer OTHER, SELFPAY ==
[2021-06-14 14:36] LABS: Basophils Absolute Auto 0.1 K/mm3 (0.0-0.1); Basophils Percent Auto 0.5 % (0.2-1.2); Eosinophils Absolute Auto 0.3 K/mm3 (0-0.3); Hematocrit 44.6 % (42.0-52.0); Hemoglobin 15.1 g/dL (14.0-18.0); Immature Granulocyte Absolute 0.11 K/mm3 (0.00-0.031); Immature Granulocyte Percent A 0.7 % (0-0.5); Lymphocytes Absolute Auto 0.96 K/mm3 (0.9-3.2); Lymphocytes Percent Auto 6.5 % (18.3-44.2); Mean Corpuscular HGB Conc 33.9 g/dl (32-36); Mean Corpuscular Hemoglobin 32.8 pg (26-34); Mean Platelet Volume 11.3 fl (7.4-10.4); Monocytes Absolute Auto 1.4 K/mm3 (0.1-0.6); Monocytes Percent Auto 9.7 % (2.6-8.5); Neutrophils Percent Auto 80.6 % (45.5-73.1); Platelet Count Result 224 k/mm3 (150-375); Red Cell Distribution Width 13.4 % (11.5-14.5); White Blood Count 14.8 K/mm3 (4.5-10.0)
[2021-06-17 00:47] LABS: Immunoglobulin E 750 kU/L (<=114)
== END 2021-06-14 14:19 | disposition home or self-care (01) ==
PROVIDERS: PCP Family Medicine; Visit Provider Physician Assistant
DX: B44.81 Allergic bronchopulmonary aspergillosis (principal)
CPT/HCPCS: 36415; 82785; 85025

== ENCOUNTER 2021-08-03 08:13 | Emergency (ER) | payer OTHER, SELFPAY ==
--- NOTE | ~2021-08-03 | XR_ITS ---
EXAMINATION: XR ankle LT min 3V DATE: 08/03/2021 08:40 INDICATION: Left ankle pain, initial encounter TECHNIQUE: Anteroposterior, lateral, mortise, and additional oblique view of the ankle were obtained. COMPARISON: None. FINDINGS: There is an oblique, nondisplaced fracture at the medial aspect of the tibial plafond invol ving the tibiotalar joint. No additional fracture is identified. 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 The soft tissues are unremarkable. IMPRESSION: 1. Nondisplaced intra-articular fracture at the medial aspect of the tibial plafond. Reviewed, dictated and finalized at location A. IMPRESSION: 1. Nondisplaced intra-articular fracture at the medial aspect of the tibial bossman fond.
[2021-08-03 08:25] VITALS: BP 185/79; PULSE 69; RESP 16; TEMP 36.8; O2SAT 98
--- NOTE | 2021-08-03 08:31 | ED.EXTPRO ---
HPI - Extremity Problem General Stated complaint: Left Ankle Pain Time Seen by Provider: 08/03/21 08:28 Source: patient and RN notes reviewed Mode of arrival: ambulatory Limitations: no limitations History of Present Illness HPI Narrative: 65-year-old male presents with concern for left ankle pain. He reports pain for 1 week. He denies any injury. He reports no pain at rest, reports pain with weightbearing. Reports 9/10 pain with weightbearing and is located at the lateral and medial ankle He denies pain with nonweightbearing rotation, flexion, extension. Reports he has been taking ibuprofen twice daily with little relief. Reports he has been wearing a brace with little relief. He denies redness, warmth, open skin. Reports swelling MD Complaint: extremity pain Related Data Home Medications Medication Instructions Recorded Confirmed cyanocobalamin (vitamin B-12) 1,000 mcg PO DAILY 05/04/21 06/14/21 1,000 mcg tablet itraconazole 10 mg/mL oral 200 mg PO BID 05/04/21 06/14/21 solution (Sporanox) itraconazole 100 mg capsule 20 mg PO DAILY 06/14/21 06/14/21 (Sporanox) Allergies Allergy/AdvReac Type Severity Reaction Status Date / Time No Known Allergies Allergy Unknown Verified 08/03/21 08:39 Review of Systems Review of Systems: CONSTITUTIONAL: Denies malaise, chills, sweats, or fever. SKIN: Denies rash or itching, open skin, laceration, abrasion, redness, warmth MUSCULOSKELETAL: Reports left ankle pain and swelling NEUROLOGIC: Denies numbness, weakness All systems reviewed & are unremarkable except as noted in HPI and below PMFSH Past Medical History Medical History Abdominal pain Abnormal fasting glucose Fasting glucose 86 with hemoglobin A1c normal at 5.6 on 04/28/2021. Acute bronchitis Benign colon polyp BMI 35.0-35.9,adult BMI 36.0-36.9,adult BPH without obstruction/lower urinary tract symptoms Candidiasis Class 1 obesity with body mass index (BMI) of 33.0 to 33.9 in adult Colon cancer screening Compression fracture of lumbosacral spine with routine healing Contracture of joint of finger Encounter for screening for other viral diseases Hypothyroid Hypothyroidism, unspecified TSH suppressed at 0.05 with free T4 elevated at 1.9 with T3 total 121 on 04/28/2021. Injury of extensor tendon of left hand Laceration of left index finger with complication Mild intermittent asthma PFT on 06/02/2021 with moderate obstructive defect with no significant bronchodilator effect. Neuropathy of both feet Obesity (BMI 35.0-39.9 without comorbidity) Obstructive sleep apnea Perianal rash Prostate cancer screening PSA normal at 0.33 on 04/28/2021. Seasonal allergic rhinitis Skin tags, multiple acquired Viral pneumonia Vitamin B12 deficiency anemia (04/28/21) level low at 368 with goal greater than 400 with hemoglobin 14.3 on 04/28/2021. Surgical History Surgical History History of back surgery Nov 2014 Family History Family History Mother Asthma Diabetes mellitus Father Diabetes mellitus Heart disease Grandparent Cancer Grandparent Heart disease Grandparent No problems noted. Grandparent Diabetes mellitus Sibling Diabetes mellitus Breathing problem Sibling Breast cancer Sibling Hypertension Social History Social History Smoking status: Never smoker Alcohol intake: former Alcohol use details: 2-3 [place] a month Substance use: never Substance use type: does not use Gender identity (if verbalized by the patient): Male Spiritual care concerns: No Comments At time of signature, agree with nursing past medical, surgical, social and family history. There is no relevant family history pe
--- NOTE | 2021-08-03 08:51 | PC.NURSE ---
PT DECLINED ICE FOR COMFORT AND WHEELCHAIR TO RADIOLOGY
== END 2021-08-03 09:10 | disposition home or self-care (01) ==
PROVIDERS: Emergency Provider Nurse Practitioner; PCP Family Medicine
DX: S82.875A Nondisplaced pilon fracture of left tibia, initial encounter for closed fracture (principal); X58.XXXA Exposure to other specified factors, initial encounter; E03.9 Hypothyroidism, unspecified; G47.33 Obstructive sleep apnea (adult) (pediatric); E66.9 Obesity, unspecified; Z68.35 Body mass index [BMI] 35.0-35.9, adult; G62.9 Polyneuropathy, unspecified
CPT/HCPCS: 29515; 73610; 99214; G0463

== ENCOUNTER → 2021-10-11 09:32 | Outpatient (CLI) | payer OTHER, SELFPAY ==
--- NOTE | ~2021-10-11 | DEXA_ITS ---
Bone Density Report Name: POONAM LERNER Age: 66 Sex: Male Ethnicity: White Date of : 1955 Indication: history of glucocorticoids; prior fracture; asthma or emphysema; Referring Provider: Teofilo Hay Study: Bone densitometry was performed. Exam Date: October 11, 2021 Accession number: [id number] Bone Density: Region BMD T-score Z-score Classification AP Spine (L1, L2, L3) 1.310 2.2 2.9 Normal Femoral Neck (Left) 0.905 -0.2 0.8 Normal Total Hip (Left) 1.121 0.6 1.1 Normal Femoral Neck (Right) 0.943 0.1 1.1 Normal Total Hip (Right) 1.188 1.0 1.5 Normal Total Hip Mean 1.155 0.8 1.3 Normal World Health Organization criteria for BMD impression classify patients as: Normal (T-score at or above -1.0), Osteopenia (T-score between -1.0 and -2.5), or Osteoporosis (T-score at or below -2.5). 10-year Fracture Risk: FRAX not reported because: All T-scores for Spine Total, Hip Total, Femoral Neck at or above -1.0 Clinical Information Provided by Patient: Has had a low trauma fracture Has taken Glucocorticoids Has the following medical conditions: Asthma or Emphysema Patient maximum height was 71 Impression: The patient has normal bone mass. The patient has risk factors, including: previous fracture, history of glucocorticoid therapy. Discussion: BONE DENSITY IS ABOVE THE MINIMUM DESIRABLE LEVEL AT ALL SKELETAL SITES TESTED. This patient?s bone mineral density is above the minimum desirable level (T-score -1.0 or better) at all sites measured. The patient should follow a healthful lifestyle (good nutrition with adequate calcium and vitamin D, and appropriate weight-bearing exercise). Follow-Up: Consider repeating this study in 5 years or sooner if there is some new clinical indication. Reported by: [facility] on 10/11/2021 10:02:00 AM. Reviewed, dictated and finalized at location ADorcas GOODMAN
== END ==
PROVIDERS: PCP Family Medicine; Visit Provider Orthopaedic Surgery
DX: S82.56XA Nondisplaced fracture of medial malleolus of unspecified tibia, initial encounter for closed fracture (principal); X58.XXXA Exposure to other specified factors, initial encounter; J45.909 Unspecified asthma, uncomplicated; J43.9 Emphysema, unspecified
CPT/HCPCS: 77080

== ENCOUNTER 2021-12-09 07:55 | Outpatient (CLI) | payer OTHER, SELFPAY ==
--- NOTE | ~2021-12-09 | CT_ITS ---
EXAMINATION:CT diagnostic chest wo con DATE: 12/09/2021 09:09 INDICATION: Allergic bronchopulmonary aspergillosis. TECHNIQUE: Computed tomography (CT) of the chest was performed without intravenous contrast. Automate d exposure control and iterative reconstruction technique were employed. The dose-length product (DLP ) was 835.15 mGy-cm. COMPARISON: Chest CT 06/02/2021, 01/16/20 FINDINGS: There are widespread airspace opacities and nodules in the lungs bilaterally in a perilymph atic distribution. Calcified right lung nodules and calcified right hilar and mediastinal lymph nodes are consistent with old granulomatous disease. There is no bronchiectasis. No pleural effusion. The heart size is normal. There are coronary artery calcifications. No pericardial effusion. There is mil d noncalcified mediastinal lymphadenopathy. There are cysts in the liver measuring up to 14 mm. There is mild thoracic spondylosis. There is mild chronic anterior wedging of multiple vertebral bodies. IMPRESSION: 1. 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 2. No bronchiectasis to suggest allergic bronchopulmonary aspergillosis. Reviewed, dictated and finalized at location A. IMPRESSION: 1. Stable diffuse lung disease and improved mild mediastinal lymphadenopathy, m ost likely sarcoid or silicosis. 2. No bronchiectasis to suggest allergic bronchopulmonary aspergillosis.
--- NOTE | 2021-12-09 15:20 | WPDPFTINT ---
PFT Procedure Performed PFT Procedure Performed Spirometry with Pre/Post Bronchodilator Plethysmography (Lung Vol) Diffusing Cap (DLCO) Flow Vol Loop PFT Interpretation This is a pulmonary function test with pre and post-bronchodilator spirometry, plethysmography and diffusing capacity. The test was performed and results interpreted in accordance with the 2019 and 2005 ATS/ERS Task Force guidelines respectively using the Global Lung Function Initiative-2012 reference equations. Patient demonstrated good effort and cooperation. Reproducibility criteria were met. The quality of the pre bronchodilator spirometry maneuver was Grade A and post bronchodilator spirometry maneuver was Grade A. Findings: Spirometry: The contour the inspiratory and expiratory flow tracing are normal. The pre bronchodilator FVC is 3.02 L, 61% predicted. The pre bronchodilator FEV1 is 1.95 L, 52% predicted. The pre bronchodilator FEV1: FVC ratio 65%. The post bronchodilator FVC is 3.31 L, representing a 10% increase. The post bronchodilator FEV1 is 2.12 L, representing a 9% increase. The post bronchodilator FEV1: FVC ratio is 64%. Plethysmography: The total lung capacity is 5.70 L, 75% predicted. The functional residual capacity is 3.15 L, 78% predicted. The residual volume is 2.23 L, 90% predicted. Diffusion capacity: The diffusing capacity unadjusted for hemoglobin and carboxyhemoglobin is 22.0, 76% predicted. The diffusing capacity adjusted for alveolar volume is 5.08, 129 % predicted. In comparison to prior pulmonary function test on 06/02/2021 the post bronchodilator FVC has decreased from 4.02 L to 3.31 L. The post bronchodilator FEV1 is unchanged from 2.35 L to 2.12 L. The total lung capacity is unchanged from 6.27 L to 5.70 L. The functional residual capacity is unchanged from 2.86 L to 3.15 L. The residual volume is unchanged from 2.26 L to 2.23 L. The diffusing capacity unadjusted for hemoglobin and carboxyhemoglobin is unchanged from 23.5 to 22.0. The diffusing capacity adjusted for alveolar volume is decreased from 6.27 to 5.08. In comparison to the 1st pulmonary function testing on 04/28/2020 the post bronchodilator FVC is unchanged from 3.29 L to 3.31 L. The post bronchodilator FEV1 is unchanged from 1.90 L to 2.12 L. The total lung capacity is unchanged from 5.54 L to 5.70 L. The functional residual capacity is increased from 2.63 L to 3.15 L. The residual volume is unchanged from 2.23 L to 2.23 L. the diffusing capacity unadjusted for hemoglobin and carboxyhemoglobin is unchanged from 23.3 to 22.0. The diffusing capacity corrected for alveolar volume is unchanged from 5.41 to 5.08 Impression: There is a moderately severe restrictive ventilatory abnormality. The spirometry is normal without evidence of an obstructive abnormality. There is no significant improvement after inhaling a single dose of albuterol. The diffusing capacity is normal. In comparison to the most recent pulmonary function testing on 06/02/2021 there has been a greater than anticipated time dependent decrease in the FVC and a greater than anticipated time dependent decrease in the diffusing capacity adjusted for alveolar volume. There has been no significant change in the FEV1, total lung capacity, functional residual capacity, residual volume or diffusing capacity unadjusted for hemoglobin and carboxyhemoglobin. Clinical correlation recommended.
== END 2021-12-09 07:56 | disposition home or self-care (01) ==
PROVIDERS: PCP Family Medicine; Visit Provider Internal Medicine Pulmonary Disease
DX: B44.81 Allergic bronchopulmonary aspergillosis (principal); R06.00 Dyspnea, unspecified; J94.8 Other specified pleural conditions; R94.2 Abnormal results of pulmonary function studies
CPT/HCPCS: 71250; 94060; 94726; 94729

== ENCOUNTER 2022-04-24 09:25 | Outpatient (CLI) | payer OTHER, SELFPAY ==
--- NOTE | 2022-04-24 09:35 | ECG_ITS ---
Measurements Intervals [place] Rate: P: DC: QRS: QRSD: T: QT: QTc: Interpretive Statements SINUS RHYTHM INTRAVENTRICULAR CONDUCTION DELAY LEFT VENTRICULAR HYPERTROPHY BASELINE ARTIFACT- I, II, III, AVR, AVL, V1-V2 BORDERLINE ECG NO PRIOR ECG FOR COMPARISON Electronically Signed On 04-24-2022 14:04:08 CDT by Damian Ortiz D.O.
== END 2022-04-24 09:26 | disposition home or self-care (01) ==
LOC: ANHSURGERY 09:31
PROVIDERS: PCP Family Medicine; Visit Provider Podiatrist Foot & Ankle Surgery
DX: I10 Essential (primary) hypertension (principal); Z01.818 Encounter for other preprocedural examination; I45.9 Conduction disorder, unspecified
CPT/HCPCS: 93005

== ENCOUNTER 2022-04-28 00:40 | Day surgery (SDC) | payer OTHER, SELFPAY ==
[2022-04-18 11:53] VITALS: BMI 36.5
--- NOTE | 2022-04-18 11:58 | PC.NURSE ---
Report to the Outpatient Waiting Room, entrance under the green pavilion located off [facility], at time 8:00 on date 04/28/22. Planned Procedure Time: 10:00. Time changes happen often and if your time is changed the preop area will call you the afternoon before. - You and your visitor will be asked to self-screen and do not enter if you have any COVID symptoms. - Only one visitor is requested with a max of two and NO children visitors are allowed at this time. - The patient visitor may be requested to leave or wait in car when not with patient due to distancing restrictions. - A mask is optional within the hospital at this time. Patients may have clear liquids (water, carbonated beverages, clear teas, apple juice) until 3 hours prior to surgery with a maximum of 20 ounces. - No food from midnight until time of surgery Take the following medications with a SIP of water the morning of surgery: INHALERS, LEVOTHYROXINE, PREDNISONE DO NOT STOP ANY OF YOUR OTHER PRESCRIPTION MEDICATIONS PRIOR TO SURGERY EXCEPT THE FOLLOWING Medications to discontinue per physician: VITAMINS/SUPPLEMENTS Date to take last dose: 04/24/[address] GONZALEZ ABOUT STOPPING IBUPROFEN Please no make-up, nail vietnamese, hairspray, perfume, deodorant, or body powder the day of surgery. No jewelry (including any body piercings) or valuables the day of surgery, leave them at home. Please take a shower or bath the night before, or the morning of, surgery with an antibacterial soap. Wear comfortable, loose fitting clothing. - Jewelry must be removed prior to entering the operating room. Rings and piercings that are not removed may be cut off. - The hospital will not accept responsibility for valuables. - Please leave all valuables, including medications, at home the day of surgery. If you are going home after surgery, a licensed bulk driver must drive you home. - NO public transportation without another adult if you receive anesthesia. - We recommend that an adult stay with you for 24 hours following discharge. - We also recommend that you do not drive, make important decision, drink alcoholic beverages, or take any drugs that were not prescribed by your health care provider for at least 24 hours after your discharge time. Follow any additional instructions given to you from your surgeon. If you or anyone in your household have experienced Covid symptoms in the past week, please notify your surgeon or the nurse liaison at the phone number below for possible testing. Telephone instructions given to PT - SERA LERNER and asked if any additional questions and then verbalized understanding. Patient advised to call surgeon office or pre surgery nurse liaison [phone] if any additional questions.
--- NOTE | 2022-04-27 16:44 | WPDANESEPPF ---
Anes - Initial Pre Proc Eval Procedure: Operation Date: 04/28/22 10:00 Proposed Procedures p Osborn Calcaneal Osteotomy Left Foot, Dorsiflexory Osteotomy First Metatarsal Left Foot - Rafi Farias JR, MD <Saran Cummings MD - Last Filed: 04/28/22 10:38> Date/Time: 04/27/22 16:44 <Saran Cummings MD - Last Filed: 04/28/22 10:38> Surgeon: Rafi Farias JR, MD <Saran Cummings MD - Last Filed: 04/28/22 10:38> Pre Op Diagnosis: cavovarus foot left <Saran Cummings MD - Last Filed: 04/28/22 10:38> Patient Data Age: 66 Gender: M Height: 1.85 m Weight: 125.65 kg <Saran Cummings MD - Last Filed: 04/28/22 10:38> Allergies Allergy/AdvReac Type Severity Reaction Status Date / Time No Known Allergies Allergy Unknown Verified 04/18/22 11:49 <Saran Cummings MD - Last Filed: 04/28/22 10:38> Home Medications Medication Instructions Recorded Confirmed Type albuterol sulfate 90 mcg/actuation 2 puff inhalation Q4H PRN 12/15/19 04/18/22 Rx aerosol inhaler (Ventolin HFA) bronchospasm #54 grams cyanocobalamin (vitamin B-12) 1,000 mcg PO DAILY 05/04/21 04/18/22 History 1,000 mcg tablet levothyroxine 175 mcg tablet 175 mcg PO DAILY #90 tabs 05/04/21 04/18/22 Rx ibuprofen 200 mg capsule 200 mg PO Q6H PRN Pain 10/04/21 04/18/22 History calcium carbonate 600 mg calcium 600 mg PO DAILY #90 tabs 10/13/21 04/18/22 Rx (1,500 mg) tablet (Calcium) fluticasone propionate 230 2 puff inhalation BID #12 grams 10/13/21 04/18/22 Rx mcg-salmeterol 21 mcg/actuation HFA inhaler cholecalciferol (vitamin D3) 25 1,000 unit PO DAILY #90 caps 11/14/21 04/18/22 Rx mcg (1,000 unit) capsule tiotropium bromide 2.5 See Rx Instructions .Route 02/03/22 04/18/22 Rx mcg/actuation mist for inhalation .COMPLEX #12 grams (Spiriva Respimat) irbesartan 150 mg tablet 150 mg PO DAILY #90 tabs 03/20/22 04/18/22 Rx dupilumab 300 mg/2 mL subcutaneous 300 mg subcut [id number] 04/18/22 04/18/22 History pen injector (Dupixent) prednisone 5 mg tablet 7.5 mg PO DAILY 04/18/22 04/18/22 History voriconazole 200 mg tablet 200 mg PO Q12H 04/18/22 04/18/22 History <Saran Cummings MD - Last Filed: 04/28/22 10:38> Patient hx anesthesia problems: none <Odin Griffin MD - Last Filed: 04/28/22 09:45> Family hx anesthesia problems: none <Odin Griffin MD - Last Filed: 04/28/22 09:45> Results Review: All pre-operative results and documents have been reviewed as part of the pre-operative evaluation. <Saran Cummings MD - Last Filed: 04/28/22 10:38> [facility] Past Medical History Medical History: Medical History Abdominal pain Abnormal fasting glucose Fasting glucose 86 with hemoglobin A1c normal at 5.6 on 04/28/2021. Glucose 95 on 09/20/2021. Acute bronchitis Arthritis Benign colon polyp BMI 35.0-35.9,adult BMI 36.0-36.9,adult BPH without obstruction/lower urinary tract symptoms Candidiasis Colon cancer screening Compression fracture of lumbosacral spine with routine healing Contracture of joint of finger Encounter for screening for other viral diseases Essential hypertension (11/14/21) Hypothyroid Hypothyroidism, unspecified TSH suppressed at 0.05 with free T4 elevated at 1.9 with T3 total 121 on 04/28/2021. TSH 0.36 with free T4 1.4 on 09/20/2021. Injury of extensor tendon of left hand Laceration of left index finger with complication Mild intermittent asthma PFT on 06/02/2021 with moderate obstructive defect with no significant bronchodilator effect. Neuropathy of both feet Nondisplaced fracture of medial malleolus left ankle Obesity (BMI 35.0-39.9 without comorbidity) Obstructive sleep apnea Perianal rash Prostate cancer screening PSA normal at 0.33 on 04/28/2021. Seasonal allergic rhinitis Skin tags, multiple acquired Viral pneumonia Vitamin B12 deficiency anemia (04/28/21) level l
--- NOTE | ~2022-04-28 | XR_ITS ---
EXAMINATION: XR surgery orthopedic DATE: 04/28/2022 13:17 INDICATION: Left calcaneal osteotomy and osteotomy of the left first metatarsal. TECHNIQUE: 3 fluoroscopic images of the left foot were obtained during procedure performed by Dr. Orlando shah. Radiologist was not present for the imaging or procedure. The amount of fluoroscopy time used during this procedure was 0.8 minutes. COMPARISON: None FINDINGS: Calcaneal osteotomy which is fixed with a pair of cannulated compression screws and a pair of mei . There are also a pair of mei at the dorsal aspect of the base of the left first metatarsal pres umably for fixation of an osteotomy which is not clearly visualized on the provided images. No fractu res. 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 IMPRESSION: 1. Fluoroscopy utilized during reported osteotomies at the left calcaneus and first metatarsal. See p rocedure note for further detail. Reviewed, dictated and finalized at location B. IMPRESSION: 1. Fluoroscopy utilized during reported osteotomies at the left calcaneus and f irst metatarsal. See procedure note for further detail.
--- NOTE | 2022-04-28 07:17 | WPDHPUPDATE1 ---
History and Physical Update Update Date/Time: 04/28/22 07:17 History and Physical has been reviewed, including an updated exam of the patient. There are NO changes in the patient's condition. Risks, benefits, and alternatives have been discussed and questions answered. Patient agrees to proceed with procedure.
[2022-04-28] MEDS: LACTATED RINGERS 1,000 ML 30 ML IV CONT (08:25)
[2022-04-28 08:38] VITALS: BP 127/77; PULSE 95; RESP 18; TEMP 36.8; O2SAT 98
--- NOTE | 2022-04-28 08:48 | SUR.PREOP ---
PT NOTED TO HAVE HEALING WOUND TO LEFT FIORE, PT AND STATE THAT DR. GONZALEZ IS AWARE AND HE HAS COMPLETED THE ANTIBIOTICS ORDERED
--- NOTE | 2022-04-28 10:38 | WPDANESPNB ---
Anes - Peripheral Nerve Block Date/Time: 04/28/22 10:38 I have discussed with the patient/family/POA the placement of a peripheral nerve block for post-operative pain management, including associated risks, benefits, complications, and side effects. Alternative methods of post-operative analgesia were detailed. Questions were solicited and answers provided to the satisfaction of the patient/family/POA. Time-Out: A pre-procedural Time-Out was completed immediately before starting the procedure and confirmed: Patient Identification, Site, Procedure, Patient Position and the Availability of Requisite Equipment. Clinical Indications: Acute post-operative pain management requested by the operative surgeon. Nerve Block Insertion Note Anes-nerve block: posterior fossa sciatic (20cc) left and adductor canal (10cc) left Patient position: supine Skin prep: chlorhexidine Needle: 22 gauge, stimulating, insulated echogenic needle. Needle length: 80 mm Technique: ultrasound (in plane) Injectate: bupivacaine 0.25% with epi 5 mcg/ml (20cc) Observations: tolerated well Complications: none Procedure start time:: 1050 Procedure end time:: 1100
[2022-04-28] MEDS: ceFAZolin 3 GM/D5W 100 ML 100 ML IVPB (11:09)
[2022-04-28 13:24] VITALS: BP 132/59; PULSE 78; RESP 16; O2SAT 95
[2022-04-28 13:55] VITALS: BP 134/79; PULSE 72; RESP 16
--- NOTE | 2022-04-28 14:04 | W.PM.PROC2 ---
Procedure Note - Detailed Date of Procedure 04/28/22 Pre-op Diagnosis Cavovarus foot left Post-op Diagnosis Same Procedure Performed 1. Osborn Calcaneal osteotomy left foot 2. Dorsiflexory osteotomy left foot 3. Plantar fasciotomy left foot Surgeon Rafi Farias JR, DPM Anesthesia General and Regional Indications Cavovarus foot with lateral column pain and non healing distal fibular fracture Description of Procedure Description of Procedure PROCEDURE IN DETAIL:? Under mild sedation, the patient was brought into the operating room, placed on the operating table in the lateral decubitus position.? A pneumatic thigh tourniquet was placed about the patient's ipsilateral limb.? Following general anesthesia and a popliteal fossa block the foot was then scrubbed, prepped, and draped in the usual aseptic manner.? An Esmarch bandage was then used to exsanguinate the patient's? foot and the pneumatic thigh tourniquet was then inflated. ? Surgery began in the following manner:? Attention was directed to the lateral aspect of the tuber of the calcaneus. The incision was continued deep down through the subcutaneous tissues using sharp and blunt dissection.? All bleeders ligated and cauterized as necessary. At this point, the lateral calcaneus was exposed with a Godinez elevator, next a Sagittal saw blade was used to cut through the lateral calcaneal wall and an osteotome was used to cut through the medial cortex.? Next, I cut a 4mm wedge of bone from the lateral cortical wall of the calcaneus. Next, two guide wires were used to maintain position of the shifted calcaneus. A small stab incision was made along the posterior calcaneus and two 5.0 mm [place] headless cannulated screws were used to compress the osteotomy site and maintain the lateralized position of the calcaneus, I also used two [employer] Compression mei, 20mm and a 15mm, superior to the screws to further compress the osteotomy site. There was small areas of gapping of the calcaneus osteotomy so I packed with the resected wedge of bone from the Osborn osteotomy site. The wound site was flushed with copious amounts of sterile saline. The stab incision was closed with 4.0 prolene. ? Next, the periosteum was reapproximated and coapted utilizing 3-0 Vicryl, the subcutaneous structures were reapproximated with 4-Vicryl.? Next, the skin was reapproximated and coapted utilizing 4-0 Monocryl in running subcuticular suture fashion technique. I externally rotated the limb in order to expose the dorsum of the midfoot. Attention was then directed to the dorsal aspect of the base of the first metatarsal. I made a linear incision just medial to the extensor hallucis longus tendon. Next, I made a capsulotomy and periosteal incision over the base of the first metatarsal and the first metatarsal cuneiform joint. I exposed the base of the first metatarsal, marker was used to donavan the are 2.0cm distal to the first metatarsal cuneiform joint. At this point I made an osteotomy along the dorsal aspect of the base of the first metatarsal perpendicular to the long axis of the first metatarsal and a second oblique cut to resect a 3mm wedge from the dorsal aspect of the base of the first metatarsal. After the wedge of bone was resected, it was passed from the operative site. I used the sagittal saw blade to feather the osteotomy closed and also the further dorsiflex the distal first metatarsal until the forefoot was noted to be neutralized in order to reduce the excessive plantarflexion of the first metatarsal. Two [place] compression mei, size 12mm and 15mm were used to compress the osteotomy. I took intraoperative images with fluoroscopy to make sure that the mei were distal to the first metatarsal cuneiform joint, excellent position was noted. Next, the periosteum was reapproximated and coapted utilizing 3-0 Vicryl, the subcutaneous structures were reapproximated with 4-Vicryl.? Next, the skin was reapproximated and
[2022-04-28 14:25] VITALS: BP 128/77; PULSE 75; RESP 16
== END 2022-04-28 14:40 | disposition home or self-care (01) ==
PROVIDERS: PCP Family Medicine; Visit Provider Podiatrist Foot & Ankle Surgery
PROC: (CPT 28750; principal; 2022-04-28 10:00)
DX: M21.172 Varus deformity, not elsewhere classified, left ankle (principal); S82.832K Other fracture of upper and lower end of left fibula, subsequent encounter for closed fracture with nonunion; G89.18 Other acute postprocedural pain; X58.XXXD Exposure to other specified factors, subsequent encounter; E03.9 Hypothyroidism, unspecified; J45.20 Mild intermittent asthma, uncomplicated; I10 Essential (primary) hypertension; G47.33 Obstructive sleep apnea (adult) (pediatric); D51.3 Other dietary vitamin B12 deficiency anemia; Z79.51 Long term (current) use of inhaled steroids; E66.9 Obesity, unspecified; Z68.35 Body mass index [BMI] 35.0-35.9, adult
CPT/HCPCS: 28008; 28300; 28306; 64447; 64445; 93005; 99199; J0690; J2250; J2704; J3010; J7120

== ENCOUNTER 2022-10-23 02:10 | Day surgery (SDC) | payer MEDICARE, SELFPAY ==
[2022-10-09 13:21] VITALS: BMI 35.6
[2022-10-23 07:45] VITALS: BP 130/74; PULSE 92; RESP 18; TEMP 36; O2SAT 96; BMI 35.4
--- NOTE | 2022-10-23 07:59 | PM.HPGS ---
History of Present Illness History of Present Illness Consent: Risks, benefits, and alternatives have been discussed and questions answered. Patient agrees to proceed with procedure. Chief complaint: hx colon polyps Narrative: Nelson Yanes is a 67 year old male Presents for surveillance colonoscopy. Previous colonoscopy 2019 revealed adenomatous colon polyp. Patient has had colon polyps on multiple previous colonoscopies. Family history is significant that his daughter in her 30s was identified as having carcinoma in Situ on polyps as well. Patient presents today for screening colonoscopy. Current weight appetite bowel movements are normal. Patient denies any blood in his stools. Review of Systems Review of Systems: Review of systems noncontributory. [facility] Past Medical History Medical History (Updated 10/23/22 @ 08:01 by Robbi Mathias MD) Abdominal pain Abnormal fasting glucose Fasting glucose 86 with hemoglobin A1c normal at 5.6 on 04/28/2021. Glucose 95 on 09/20/2021. Hemoglobin A1c 5.7 on 06/08/2022. Acute bronchitis Arthritis Benign colon polyp BMI 35.0-35.9,adult BMI 36.0-36.9,adult BPH without obstruction/lower urinary tract symptoms Candidiasis Colon cancer screening Compression fracture of lumbosacral spine with routine healing Contracture of joint of finger Encounter for screening for other viral diseases Essential hypertension (11/14/21) Hypothyroid Hypothyroidism, unspecified TSH suppressed at 0.05 with free T4 elevated at 1.9 with T3 total 121 on 04/28/2021. TSH 0.36 with free T4 1.4 on 09/20/2021. TSH 3.16 with free T4 1.4 on 06/08/2022. Injury of extensor tendon of left hand Laceration of left index finger with complication Mild intermittent asthma PFT on 06/02/2021 with moderate obstructive defect with no significant bronchodilator effect. Neuropathy of both feet Nondisplaced fracture of medial malleolus left ankle Obesity (BMI 35.0-39.9 without comorbidity) Obstructive sleep apnea Perianal rash Prostate cancer screening PSA normal at 0.33 on 04/28/2021. PSA 0.36 on 06/08/2022. Seasonal allergic rhinitis Skin tags, multiple acquired Viral pneumonia Vitamin B12 deficiency anemia (04/28/21) level low at 368 with goal greater than 400 with hemoglobin 14.3 on 04/28/2021. vitamin B12 1064 with hemoglobin 14.7 on 09/20/2021. Level normal at 12 119 on 06/08/2022 with hemoglobin 13.4. Surgical History Surgical History History of back surgery Nov 2014 Family History Family History Mother Asthma Diabetes mellitus Alcoholism Father Diabetes mellitus Heart disease Hypertension Grandparent Cancer Grandparent Heart disease Grandparent No problems noted. 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
[2022-10-23] MEDS: LACTATED RINGERS 1,000 ML 150 ML IV CONT (08:14)
--- NOTE | 2022-10-23 08:16 | WPDANESEPPF ---
Anes - Initial Pre Proc Eval Procedure: Operation Date: 10/23/22 09:00 Proposed Procedures p Colonoscopy - Robbi Mathias MD Date/Time: 10/23/22 08:16 Surgeon: Robbi Mathias MD Pre Op Diagnosis: hx colon polyps Patient Data Age: 67 Gender: M Height: 1.85 m Weight: 121.6 kg Last Vital Signs Temp 36.0 C L 10/23/22 07:45 Pulse 92 10/23/22 07:45 Resp 18 10/23/22 07:45 BP 130/74 10/23/22 07:45 Pulse Ox 96 10/23/22 07:45 O2 Del Method Room Air 10/23/22 07:45 Allergies Allergy/AdvReac Type Severity Reaction Status Date / Time No Known Allergies Allergy Unknown Verified 10/23/22 07:44 Home Medications Medication Instructions Recorded Confirmed Type albuterol sulfate 90 mcg/actuation 2 puff inhalation Q4H PRN 12/15/19 10/23/22 Rx aerosol inhaler (Ventolin HFA) bronchospasm #54 grams cyanocobalamin (vitamin B-12) 1,000 mcg PO DAILY 05/04/21 10/23/22 History 1,000 mcg tablet ibuprofen 200 mg capsule 200 mg PO Q6H PRN Pain 10/04/21 10/23/22 History calcium carbonate 600 mg calcium 600 mg PO DAILY #90 tabs 10/13/21 10/23/22 Rx (1,500 mg) tablet (Calcium) cholecalciferol (vitamin D3) 25 1,000 unit PO DAILY #90 caps 11/14/21 10/23/22 Rx mcg (1,000 unit) capsule dupilumab 300 mg/2 mL subcutaneous 300 mg subcut [id number] 04/18/22 10/23/22 History pen injector (Dupixent) budesonide-formoterol HFA 160 2 puff inhalation Q12H 06/12/22 10/23/22 History mcg-4.5 mcg/actuation aerosol inhaler (Symbicort) prednisone 1 mg tablet 4 mg PO DAILY #100 tabs 06/12/22 10/23/22 Rx irbesartan 150 mg tablet 150 mg PO DAILY #90 tabs 10/04/22 10/23/22 Rx levothyroxine 175 mcg tablet 175 mcg PO DAILY #90 tabs 10/04/22 10/23/22 Rx sodium,potassium,mag sulfates 17.5 See Rx Instructions PO .COMPLEX 10/04/22 10/23/22 Rx gram-3.13 gram-1.6 gram oral soln #354 mL (Suprep Bowel Prep Kit) gabapentin 300 mg capsule 300 mg PO TID 10/09/22 10/23/22 History Patient hx anesthesia problems: none Family hx anesthesia problems: none Results Review: All pre-operative results and documents have been reviewed as part of the pre-operative evaluation. [facility] Past Medical History Medical History (Updated 10/23/22 @ 08:01 by Robbi Mathias MD) Abdominal pain Abnormal fasting glucose Fasting glucose 86 with hemoglobin A1c normal at 5.6 on 04/28/2021. Glucose 95 on 09/20/2021. Hemoglobin A1c 5.7 on 06/08/2022. Acute bronchitis Arthritis Benign colon polyp BMI 35.0-35.9,adult BMI 36.0-36.9,adult BPH without obstruction/lower urinary tract symptoms Candidiasis Colon cancer screening Compression fracture of lumbosacral spine with routine healing Contracture of joint of finger Encounter for screening for other viral diseases Essential hypertension (11/14/21) Hypothyroid Hypothyroidism, unspecified TSH suppressed at 0.05 with free T4 elevated at 1.9 with T3 total 121 on 04/28/2021. TSH 0.36 with free T4 1.4 on 09/20/2021. TSH 3.16 with free T4 1.4 on 06/08/2022. Injury of extensor tendon of left hand Laceration of left index finger with complication Mild intermittent asthma PFT on 06/02/2021 with moderate obstructive defect with no significant bronchodilator effect. Neuropathy of both feet Nondisplaced fracture of medial malleolus left ankle Obesity (BMI 35.0-39.9 without comorbidity) Obstructive sleep apnea Perianal rash Prostate cancer screening PSA normal at 0.33 on 04/28/2021. PSA 0.36 on 06/08/2022. Seasonal allergic rhinitis Skin tags, multiple acquired Viral pneumonia Vitamin B12 deficiency anemia (04/28/21) level low at 368 with goal greater than 400 with hemoglobin 14.3 on 04/28/2021. vitamin B12 1064 with hemoglobin 14.7 on 09/20/2021. Level normal at 12 119 on 06/08/2022 with hemoglobin 13.4. Surgical History Surgical History History of back surgery Nov 2014 Family History Family History (Reviewed 06/12/22 @ 09:50 by
[2022-10-23 09:06] VITALS: BP 97/65; PULSE 72; RESP 19; O2SAT 96
[2022-10-23 09:16] VITALS: BP 113/75; PULSE 70; RESP 21; O2SAT 98
[2022-10-23 09:26] VITALS: BP 121/75; PULSE 69; RESP 16; O2SAT 100
== END 2022-10-23 09:32 | disposition home or self-care (01) ==
PROVIDERS: PCP Family Medicine; Visit Provider Internal Medicine Gastroenterology
PROC: 0DJD8ZZ Inspection of Lower Intestinal Tract, Via Natural or Artificial Opening Endoscopic (ICD-10-PCS; CPT 45378; principal; 2022-10-23 09:00)
DX: Z12.11 Encounter for screening for malignant neoplasm of colon (principal); D12.5 Benign neoplasm of sigmoid colon; K64.8 Other hemorrhoids; K57.30 Diverticulosis of large intestine without perforation or abscess without bleeding; Z80.0 Family history of malignant neoplasm of digestive organs; I10 Essential (primary) hypertension; E03.9 Hypothyroidism, unspecified; J45.20 Mild intermittent asthma, uncomplicated; N40.0 Benign prostatic hyperplasia without lower urinary tract symptoms; G62.9 Polyneuropathy, unspecified; G47.33 Obstructive sleep apnea (adult) (pediatric); E53.8 Deficiency of other specified B group vitamins; Z79.620 Long term (current) use of immunosuppressive biologic; Z79.51 Long term (current) use of inhaled steroids; Z79.52 Long term (current) use of systemic steroids; E66.9 Obesity, unspecified; Z68.35 Body mass index [BMI] 35.0-35.9, adult
CPT/HCPCS: 45385; 88305; J2704; J7120

== ENCOUNTER 2024-06-06 06:38 | Outpatient (CLI) | payer MEDICARE, SELFPAY ==
--- NOTE | ~2024-06-06 | NM_ITS ---
NM hepatobiliary w pharm Procedure: Hepatobiliary scan performed following IV administration 5 mCi Tc 99m Choletec. At 60 min utes 2.4 mcg CCK administered IV for evaluation of gallbladder ejection fraction. Indication: Right upper quadrant pain Comparison: CT dated 04/02/2020 Findings: There is normal radiotracer uptake in the liver parenchyma with prompt excretion into the b iliary tract. Gallbladder visualized at 20 minutes. Small bowel visualized at 20 minutes. Gallbla dder ejection fraction measures 10 %. (Normal is considered 10-90%, but most patients with gallbladde r dysfunction have GBEF of less than 35%) Impression: 1: Low gallbladder ejection fraction measuring 10%. Low GBEF is associated with gallbladder dysfunct ion, although not specific for acute or chronic cholecystitis. Reviewed, dictated and finalized at location A. Impression: 1: Low gallbladder ejection fraction measuring 10%. Low GBEF is associated wit h gallbladder dysfunction, although not specific for acute or chronic cholecyst itis.
--- OUTSIDE RECORDS SUMMARY | 2024-06-06 06:41 | XMS_ITS | Encounter Summary ---
Author Organization [facility] Address [address] [place] [address] Phone Care Team Providers Care Designer Name Role Phone Miscellaneous, Not In File Primary Care Provider Unavailable No, Physician Primary Care Provider [phone] Wesley Bailey MD Primary Care Provider [phone] Encounter Details Date Type Department Care Team (Latest Contact Info) Description 01/16/2020 Orders Only [facility] Scanning, Provider Social History Tobacco Use Types Packs/Day Years Used Date Smoking Tobacco: Never Sex and Gender Information Value Date Recorded Sex Assigned at Not on file 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 Gender Identity Not on file Sexual Orientation Not on file documented as of this encounter Plan of Treatment Not on file documented as of this encounter Procedures Procedure Name Priority Date/Time Associated Diagnosis Comments SCAN - RADIOLOGY/IMAGING 01/16/2020 documented in this encounter Results * SCAN - RADIOLOGY/IMAGING (01/16/2020) Anatomical Region Laterality Modality Other us Provider Scanning Final Result documented in this encounter Visit Diagnoses Not on filedocumented in this encounter Care Teams Designer Relationship Specialty Start Date End Date Miscellaneous, Not In File PCP - General 01/28/21 No, Physician PCP - General 10/03/21 11/21/21 Wesley Bailey MD [address] [address] PCP - General Family Medicine 11/22/21 documented as of this encounter
--- OUTSIDE RECORDS SUMMARY | 2024-06-06 06:41 | XMS_ITS | Encounter Summary ---
Author Organization [facility] [employer] [facility] Address [address] [place] [address] Phone Care Team Providers Care Aws Developer Name Role Phone Miscellaneous, Not In File Primary Care Provider Unavailable No, Physician Primary Care Provider [phone] Wesley Bailey MD Primary Care Provider [phone] Encounter Details Date Type Department Care Team (Latest Contact Info) Description 12/02/2020 Orders Only [facility] Scanning, Provider Social History Tobacco Use Types Packs/Day Years Used Date Smoking Tobacco: Never Sex and Gender Information Value Date Recorded Sex Assigned at Not on file 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 Gender Identity Not on file Sexual Orientation Not on file documented as of this encounter Plan of Treatment Not on file documented as of this encounter Procedures Procedure Name Priority Date/Time Associated Diagnosis Comments SCAN - RADIOLOGY/IMAGING 12/02/2020 documented in this encounter Results * SCAN - RADIOLOGY/IMAGING (12/02/2020) Anatomical Region Laterality Modality Other us Provider Scanning Final Result documented in this encounter Visit Diagnoses Not on filedocumented in this encounter Care Teams Aws Developer Relationship Specialty Start Date End Date Miscellaneous, Not In File PCP - General 01/28/21 No, Physician PCP - General 10/03/21 11/21/21 Wesley Bailey MD [address] [address] PCP - General Family Medicine 11/22/21 documented as of this encounter
--- OUTSIDE RECORDS SUMMARY | 2024-06-06 06:41 | XMS_ITS | Referral Summary ---
Author Organization [facility] Address [address] [place] [address] Care Team Providers Care Master Craftsman Name Role Phone Wesley Bailey MD Primary Care Provider [phone] Encounters Date Type Department Care Team Description 03/17/2024 Orders Only [facility] [address] [place] [address] [place] [address] Alberto Morris MD Sarcoidosis (Primary Dx) 03/17/2024 Telephone [facility] [address] [place] [address] [place] [address] Cristina Tuttle CMA from Last 3 Months Allergies No known active allergies Medications levothyroxine (SYNTHROID) 125 mcg tablet 175 mcg Active irbesartan (AVAPRO) 150 mg tablet Take 1 tablet (150 mg total) by mouth daily 2 Active montelukast (SINGULAIR) 10 mg tablet Take 1 tablet (10 mg total) by mouth nightly Active gabapentin (NEURONTIN) 300 mg capsule Take 1 capsule (300 mg total) by mouth 3 (three) times a day 800 two times daily 3 Active cyanocobalamin (Vitamin B-12) 100 mcg tabletIndication s:Prevention of Vitamin B12 Deficiency Take 1 tablet (100 mcg total) by mouth daily Active calcium carbonate (OS-LEAH) 1,250 mg (500 mg elemental) tablet Take 1 tablet (1,250 mg total) by mouth daily Active multivitamin tabletIndication s:Vitamin Deficiency Prevention Take 1 tablet by mouth Active amitriptyline (ELAVIL) 25 mg tablet TAKE ONE AND ONE-HALF TABLET BY MOUTH EVERY DAY AT BEDTIME 4 Active terbinafine (LamiSIL) 250 mg tablet Take 1 tablet (250 mg total) by mouth daily 4 Active levothyroxine (SYNTHROID) 175 mcg tablet 4 Active ergocalciferol (VITAMIN D) 50,000 unit capsule Take 1 capsule (50,000 units total) by mouth once a week for 8 weeks 8 capsule 4 Active Additional Information Patient not taking.Reported on 01/21/2024 atorvastatin (LIPITOR) 20 mg tablet 4 Active gabapentin (NEURONTIN) 800 mg tablet 4 Active folic acid (FOLVITE) 1 mg tablet Take 1 tablet (1 mg total) by mouth daily 90 tablet 3 4 10/09/19 25 Active dupilumab (Dupixent Pen) pen injectorIndicati ons:Severe persistent asthma, unspecified whether complicated (HCC),Eosinophil ic asthma Inject 2 mL (300 mg total) under the skin every 14 (fourteen) days 4 mL 11 4 Active Symbicort 160-4.5 mcg/actuation inhaler USE 2 INHALATIONS BY MOUTH TWICE DAILY . RINSE MOUTH AFTER USE WITH WATER . DO NOT SWALLOW 30.6 g 3 5 Active methotrexate 2.5 mg tabletIndication s:autoimmune disease,Sarcoid Take 6 tablets (15 mg total) by mouth every 7 days 72 tablet 5 Active Active Problems Problem Noted Date Diagnosed Date Sarcoidosis 10/08/2023 Mediastinal adenopathy 01/22/2023 Severe persistent asthma dependent on systemic s teroids 08/28/2022 Elevated BP without diagnosis of hypertension Assessment & Plan (10/04/2021 12:58 PM CDT): - Discussed with patient his elevated BP. Initial BP was 184/73. When rechecked it was lower at 160/76 - At home he states that his BP is normally in the 150's (systolic) - Will plan to have him check his BP this evening and tomorrow morning and send the readings over through my chart to review - Concern that elevation could be related to the Itraconazole - Will also check an Itraconazole level Obstructive sleep apnea syndrome 08/09/2021 Periodic limb movement disorder 08/09/2021 Aspergillosis, allergic bronchopulmonary 022 Assessment & Plan (01/16/2023 8:21 PM FREIGHT TRAFFIC CONSULTANT): 66 y.o. male with history of severe eosinophilic asthma, and ABPA. Diagnosed and started treatment on 04/26/20 with prednisone. He was later referred to ID for persistently elevated eosinophils and IgE levels, with inability to completely taper off the steroids. Serology for Aspergillus was positive with Aspergillus fumigatus IgE 02/21/21 of 7.36 (ref 0-0.34). He was started on itraconazole 200 mg BID in late March 2021, switched to voriconazole in February 2022 due to insurance/PAP issues. Repeat CT chest 12/2021 showed stable mediastinal adenopathy, and recent PFTs in 09/03 stable compared to 03/06.Started on dupixent by [facility] on 03/14/22 with good improvement. Now off pred. Voriconazole discontinued during last visit 08/2022. Since then he has been doing well with no new or worsening symptoms. Repeat CT chest this morning read as redemonstrated are areas of perilymphatic nodularity and peribronchovascular consolidation. These findings have progressed over multiple prior examinations dating back to 06/09/2020. The overall appearance is more consistent with sarcoidosis than aspergillus. PLAN -continue off of voriconazole. He has completed therapy for ABPA and symptoms remain stable now 5 months off vori. He does not need to see us again in clinic. -recommended he follow-up with Pulmonology regarding the findings on CT being read as more consistent with sarcoidosis -[facility] PR[facility] Assessment & Plan (09/13/2022 11:33 AM CDT): 66 y.o. male with history of severe eosinophilic asthma, and ABPA. Diagnosed and started treatment on 04/26/20 with prednisone. He was later referred to ID for persistently elevated eosinophils and IgE levels, with inability to completely taper off the steroids. Serology for Aspergillus was positive with Aspergillus fumigatus IgE 02/21/21 of 7.36 (ref 0-0.34). He was started on itraconazole 200 mg BID in late March 2021, switched to voriconazole in February 2022 due to insurance/PAP issues. Repeat CT chest 12/2021 showed stable mediastinal adenopathy, and recent PFTs in 09/03 stable compared to 03/06.Started on dupixent by [facility] on 03/14/22 with good improvement. Currently weaned down to 1 mg/day of prednisone. Pulmonology recommends discontinuing voriconazole. Plan: -patient has completed around 18 months of antifungal therapy. He is symptomatically doing better on Dupixent. Agree with pulmonology that adequate duration of treatment has been given for allergic bronchopulmonary aspergillosis -discontinue voriconazole -repeat chest CT to ensure improvement in the radiological findings Assessment & Plan (10/04/2021 12:53 PM CDT): - Continues on Itraconazole oral solution 200 mg BID for treatment of ABPA. - As of today he has completed 6 months of therapy. - Initially plan was to treat x 6 months based on how he responds to treatment. - His Prednisone was decreased to 10 mg prior to previous ID appointment on 08/01/21. He tolerated decrease initially but reports that he soon became more SOB, had a persistent cough, and felt it was harder to clear phlegm from his throat. With this recent episode he increased his prednisone back to 20 mg daily. Starting to feel back to him self this week. With recent episode will plan to continue Itraconazole at this time. Possible that we may need to extend his length of therapy based on this response. Will plan to have him follow back in 1 month as a telephone visit to consult with Dr. Gómez prior to stopping or extending as he is out of the office today. Pt agrees with this plan. - Will plan to continue Itraconazole for at least another month and at next follow-up will discuss with Dr. Gómez regarding stopping or continuing treatment. - Labs today: CBC/CMP/Itraconazole level - Discussed with patient the rational for treatment, culture results, risk of recurrent infection, signs/symptoms of recurrent infection, and to contact ID clinic with any questions or concerns Assessment & Plan (08/09/2021 8:44 AM CDT): - Continues on Itraconazole oral solution 200 mg BID for treatment of ABPA. - As of today he has completed 4 months of therapy. - Initially plan to treat x 6 months based on how he responds to treatment. - Will plan to continue Itraconazole for at least another 2 months and at next follow-up will discuss stopping or continuing treatment. - Labs today: CBC/CMP/Itraconazole level - Discussed with patient the rational for treatment, culture results, risk of recurrent infection, signs/symptoms of recurrent infection, and to contact ID clinic with any questions or concerns Complication of internal fixation device 016 Pseudarthrosis after fusion or arthrodesis 09/22 Burst fracture of lumbar vertebra 12/25/2014 Immunizations Immunization Administration Dates Next Due Influenza, Quadrivalent, Hig h Dose, Preservative Free, Intrr 11/20/2022 Influenza, Trivalent, Preservative Free, Intramu scular 11/12/2014 Social History Tobacco Use Types Packs/Day Years Used Date Smoking Tobacco: Never Smokeless Tobacco: Never Tobacco Cessation:Counseling Given: Not Answered AUDIT-C Answer Date Recorded Frequency of Alcohol Consumption Not on file 02/16/2023 Q2: How many drinks containi ng alcohol do you have on a typical day when you are drinking? Patient does not drink Frequency of Binge Drinking Not on file 06/2023 Personal Safety Answer Date Recorded Have you ever been in or are you currently in a harmful physical or emotional relationship or is someone making you feel afraid or unsafe? 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 Gender Identity Not on file Sexual Orientation Not on file Last Filed Vital Signs Vital Sign Reading Time Taken Comments Blood Pressure 126/78 01/21/2024 11:55 AM FREIGHT TRAFFIC CONSULTANT Pulse 80 01/21/2024 11:55 AM FREIGHT TRAFFIC CONSULTANT Temperature 37.1 C (98.7 F) 01/21/2024 11:55 AM FREIGHT TRAFFIC CONSULTANT Respiratory Rate 20 01/21/2024 11:55 AM FREIGHT TRAFFIC CONSULTANT Oxygen Saturation 94% 01/21/2024 11:55 AM FREIGHT TRAFFIC CONSULTANT Inhaled Oxygen Concentration - - Weight 128.4 kg (283 lb) 01/21/2024 11:55 AM FREIGHT TRAFFIC CONSULTANT Height 185.4 cm (6' 1 ) 01/21/2024 11:55 AM FREIGHT TRAFFIC CONSULTANT Body Mass Index 37.34 01/21/2024 11:55 AM FREIGHT TRAFFIC CONSULTANT Plan of Treatment Not on file Procedures Procedure Name Priority Date/Time Associated Diagnosis Comments COMPREHENSIVE METABOLIC PANEL Routine 03/14/2024 6:40 AM FREIGHT TRAFFIC CONSULTANT Sarcoidosis High risk medication use CBC WITH AUTO DIFFERENTIAL Routine 03/14/2024 6:40 AM FREIGHT TRAFFIC CONSULTANT Sarcoidosis High risk medication use PSA SCREEN Routine 07/06/2023 7:29 AM CDT from Last 3 Months or Most Recently Relevant to Health Maintenance Results * (ABNORMAL) CBC with auto differential (03/14/2024 6:40 AM FREIGHT TRAFFIC CONSULTANT) Pathologist [facility] WBC 10.0 3.8 - 10.8 Thousand/u L [facility] RBC, POC 4.21 4.20 - 5.80 Million/uL [facility] Hgb 13.8 13.2 - 17.1 g/dL [facility] Hct 42.1 38.5 - 50.0 % [facility] MCV 100.0 80.0 - 100.0 fL [facility] MCH 32.8 27.0 - 33.0 pg [facility] MCHC 32.8 32.0 - 36.0 g/dL [facility] Comment: For adults, a slight decrease in the calculated MCHC value (in the range of 30 to 32 g/dL) is most likely not clinically significant; however, it should be interpreted with caution in correlation with other red cell parameters and the patient's clinical condition. Rdw 13.0 11.0 - 15.0 % [facility] Platelets 267 140 - 400 Thousand/u L [facility] MPV 10.8 7.5 - 12.5 fL [facility] Neutrophils, abs 6,950 1,500 - 7,800 cells/uL [facility] Lymphocytes, abs 1,270 850 - 3,900 cells/uL [facility] Monocyte abs 940 200 - 950 cells/uL [facility] Eosinophils, abs 730(H) 15 - 500 cells/uL [facility] Basophils, abs 110 0 - 200 cells/uL [facility] Neutrophils 69.5 % [facility] Lymphocyte pct 12.7 % [facility] Monocytes 9.4 % [facility] Eosinophils 7.3 % [facility] Basophils 1.1 % [facility] Blood 03/14/2024 6:40 AM FREIGHT TRAFFIC CONSULTANT 03/14/2024 6:40 AM FREIGHT TRAFFIC CONSULTANT Narrative [facility] - 03/15/2024 4:03 AM FREIGHT TRAFFIC CONSULTANT FASTING:YES FASTING: YES us Alberto Morris MD LAB BLOOD ORDERABLES F inal Result [facility] [address] [facility] [place] [place] [address] * (ABNORMAL) Comprehensive metabolic panel (03/14/2024 6:40 AM FREIGHT TRAFFIC CONSULTANT) Pathologist [facility] Glucose 110(H) 65 - 99 mg/dL [facility] Comment: Fasting reference interval For someone without known diabetes, a glucose value between 100 and 125 mg/dL is consistent with prediabetes and should be confirmed with a follow-up test. BUN 15 7 - 25 mg/dL [facility] Creatinine 0.91 0.70 - 1.35 mg/dL [facility] eGFR 93 > OR = 60 mL/min/1.7 3m2 [facility] BUN/creat ratio SEE NOTE: 6 - 22 (calc) [facility] Comment: Not Reported: BUN and Creatinine are within reference range. Sodium 138 135 - 146 mmol/L [facility] Potassium, pl 4.3 3.5 - 5.3 mmol/L [facility] Chloride 101 98 - 110 mmol/L [facility] CO2 28 20 - 32 mmol/L [facility] Calcium 9.0 8.6 - 10.3 mg/dL [facility] Protein, sr 7.0 6.1 - 8.1 g/dL [facility] Albumin 3.8 3.6 - 5.1 g/dL [facility] GLOBULIN 3.2 1.9 - 3.7 g/dL (calc) [facility] Alb/glob ratio 1.2 1.0 - 2.5 (calc) [facility] Bilirubin, total 0.5 0.2 - 1.2 mg/dL [facility] Alk phos 92 35 - 144 U/L [facility] AST 26 10 - 35 U/L [facility] ALT (SGPT) 22 9 - 46 U/L [facility] Blood 03/14/2024 6:40 AM FREIGHT TRAFFIC CONSULTANT 03/14/2024 6:40 AM FREIGHT TRAFFIC CONSULTANT Narrative [facility] - 03/15/2024 4:03 AM FREIGHT TRAFFIC CONSULTANT FASTING:YES FASTING: YES Alberto Morris MD LAB BLOOD ORDERABLES F inal Result Performing Organization Address [facility] de Phone Number [facility] [address] [place] [address] * PSA screen (07/06/2023 7:29 AM CDT) PSA 0.36 < OR = 4.00 ng/mL [facility] Comment: The total PSA value from this assay system is standardized against the WHO standard. The test result will be approximately 20% lower when compared to the equimolar-standardized total PSA (Malcolm Concha). Comparison of serial PSA results should be interpreted with this fact in mind. This test was performed using the Siemens chemiluminescent method. Values obtained from different assay methods cannot be used interchangeably. PSA levels, regardless of value, should not be interpreted as absolute evidence of the presence or absence of disease. 07/06/2023 7:29 AM CDT 07/06/2023 7:34 AM CDT Narrative [facility] - 07/07/2023 2:51 AM CDT FASTING:YES FASTING: YES Wesley Bailey MD LAB BLOOD ORDERABLES Florina l Result Performing Organization Address [facility] Co de Phone Number [facility] [address] [place], [place] [address] from Last 3 Months or Most Recently Relevant to Health Maintenance Insurance [facility] MEDICARE ADVANTAGE [facility] MED[facility] Address: [address] [address] [facility] MEDICARE ADVANTAGE [facility] MED[facility] Address: [place] [id number] [place] [phone] Care Teams Master Craftsman Relationship Specialty Start Date End Date Wesley Bailey MD [address] [address] PCP - General Family Medicine 11/22/21
--- OUTSIDE RECORDS SUMMARY | 2024-06-06 06:41 | XMS_ITS | Encounter Summary ---
Author Organization [facility] [employer] [facility] Address [address] [place] [address] Phone Care Team Providers Care Clinic Md Associate Name Role Phone Miscellaneous, Not In File Primary Care Provider Unavailable No, Physician Primary Care Provider [phone] Wesley Bailey MD Primary Care Provider [phone] Encounter Details Date Type Department Care Team (Latest Contact Info) Description 06/09/2020 Orders Only [facility] Scanning, Provider Social History Tobacco Use Types Packs/Day Years Used Date Smoking Tobacco: Never Sex and Gender Information Value Date Recorded Sex Assigned at Not on file 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 Gender Identity Not on file Sexual Orientation Not on file documented as of this encounter Plan of Treatment Not on file documented as of this encounter Procedures Procedure Name Priority Date/Time Associated Diagnosis Comments SCAN - RADIOLOGY/IMAGING 06/09/2020 documented in this encounter Results * SCAN - RADIOLOGY/IMAGING (06/09/2020) Anatomical Region Laterality Modality Other us Provider Scanning Final Result documented in this encounter Visit Diagnoses Not on filedocumented in this encounter Care Teams Clinic Md Associate Relationship Specialty Start Date End Date Miscellaneous, Not In File PCP - General 01/28/21 No, Physician PCP - General 10/03/21 11/21/21 Wesley Bailey MD [address] [address] PCP - General Family Medicine 11/22/21 documented as of this encounter
--- OUTSIDE RECORDS SUMMARY | 2024-06-06 06:41 | XMS_ITS | Clinical Summary ---
Author Organization [facility] Address [address] [place] [address] Care Team Providers Care Cathead Worker Name Role Phone Wesley Bailey MD Primary Care Provider [phone] [phone] Allergies No known active allergies Medications levothyroxine [...] 022 Assessment & Plan (01/16/2023 8:21 PM MANAGER COSMETIC): 66 y.o. male with history of severe [...] stable compared to 03/06.Started on dupixent by [facility] Pulmonology on 03/14/22 with good [...] being read as more consistent with sarcoidosis -[facility] PRN Assessment & Plan (09/13/2022 11:33 [...] stable compared to 03/06.Started on dupixent by [facility] Pulmonology on 03/14/22 with good [...] 09/22 Burst fracture of lumbar vertebra 12/25/2014 Encounters Date Type Department Care Team Description 03/17/2024 Orders Only [facility] Pul[facility] [address] 8th [place] [address] [place] [id number] Alberto Morris MD Sarcoidosis (Primary Dx) 03/17/2024 Telephone [facility] [address] 8th [place] [address] [place] [address] Cristina Tuttle CMA from Last 3 Months Immunizations Immunization Administration Dates Next Due Influenza, Quadrivalent, Hig h Dose, Preservative Free, Intrr 11/20/2022 Influenza, Trivalent, Preservative Free, Intramu scular 11/12/2014 Surgical History Surgery Date Site/Laterality Comments [place] TONSILLECTOMY PRIMARY/SECONDARY <AGE 14 Tonsillectomy - (Added by TW Conv) [place] ARTHRD ANT INTERBODY MIN DSC LUMBAR Lumbar Vertebral Fusion - (Added by TW Conv) BACK SURGERY EYE SURGERY 02/12/2022 - 02/11/2023 Bilateral FRACTURE SURGERY 02/12/2018 - 02/11/2019 Left finger surgery\straightening Medical History Medical History Date Comments Personal history of other en docrine, nutritional and metabolic disease History of hypothyro idism - (Added by TW Conv) Personal history of other di seases of the respiratory system History of asthma - (Added b y TW Conv) Other specified anxiety disorders Depression with anxiety - (Added by TW Conv) Arthritis Asthma Hypertension Thyroid disease Sleep apnea Family History Medical History Relation Name Comments Diabetes Father Family history of diabetes mellitus - (Added by TW Conv) Diabetes Mother Family history of diabetes mellitus - (Added by TW Conv) Cancer Other Family history of cancer - (Added by TW Conv) Diabetes Other Family history of diabetes mellitus - (Added by TW Conv) Breast cancer Sister Family history of malignant neoplasm of breast - (Added by TW Conv) Relation Name Status Comments Father Mother Other Sister Social History Tobacco Use Types Packs/Day Years [...] on file Legal Sex Male 9:09 PM MANAGER COSMETIC Gender Identity Not on file Sexual Orientation Not on file Obstetrics History Last Filed Vital Signs Vital Sign Reading Time Taken Comments Blood Pressure 126/78 01/21/2024 11:55 AM MANAGER COSMETIC Pulse 80 01/21/2024 11:55 AM MANAGER COSMETIC Temperature 37.1 C (98.7 F) 01/21/2024 11:55 AM MANAGER COSMETIC Respiratory Rate 20 01/21/2024 11:55 AM MANAGER COSMETIC Oxygen Saturation 94% 01/21/2024 11:55 AM MANAGER COSMETIC Inhaled Oxygen Concentration - - Weight 128.4 kg (283 lb) 01/21/2024 11:55 AM MANAGER COSMETIC Height 185.4 cm (6' 1 ) 01/21/2024 11:55 AM MANAGER COSMETIC Body Mass Index 37.34 01/21/2024 11:55 AM MANAGER COSMETIC Plan of Treatment Health Maintenance Due Date Last Done Comments Colon Cancer Screening-Colonoscopy 1955 Depression Screening 1955 Hepatitis C Screening 1955 DTaP/Tdap/Td Vaccine (1 - Tdap) 1968 Hepatitis B Screening 08/14/1975 Pneumococcal vaccine 65+ (2 of 2 - PCV) 11/03/2020 11/04/2019 Well Visit 65+ 2022 Covid-19 Vaccine (4 - 2023-2 5 season) 2023 01/21/2021, 05/06/2020, 04/13/2020 Fall Risk Assessment 02/17/2024 02/16/2023 Influenza Vaccine (Season Ended) 2024 11/20/2022, 11/26/2020, 11/04/2019, Additional history exists Prostate Cancer Screening-PSA 07/05/2025 07/06/2023 Zoster Vaccine Completed 04/11/2019, 12/20/2018 Procedures Procedure Name Priority Date/Time Associated Diagnosis Comments COMPREHENSIVE METABOLIC PANEL Routine 03/14/2024 6:40 AM MANAGER COSMETIC Sarcoidosis High risk medication use CBC WITH AUTO DIFFERENTIAL Routine 03/14/2024 6:40 AM MANAGER COSMETIC Sarcoidosis High risk medication use PSA SCREEN Routine 07/06/2023 7:29 AM CDT from Last 3 Months or Most Recently Relevant to Health Maintenance Results * (ABNORMAL) CBC with auto differential (03/14/2024 6:40 AM MANAGER COSMETIC) Pathologist [facility] WBC 10.0 3.8 - 10.8 Thousand/u L [...] [facility] Blood 03/14/2024 6:40 AM MANAGER COSMETIC 03/14/2024 6:40 AM MANAGER COSMETIC Narrative [facility] - 03/15/2024 4:03 AM MANAGER COSMETIC FASTING:YES FASTING: YES us Alberto Morris MD LAB BLOOD ORDERABLES F inal Result [facility] [address] [facility] [place] [address] * (ABNORMAL) Comprehensive metabolic panel (03/14/2024 6:40 AM MANAGER COSMETIC) Pathologist [facility] Glucose 110(H) 65 - 99 mg/dL [facility] [...] [facility] Blood 03/14/2024 6:40 AM MANAGER COSMETIC 03/14/2024 6:40 AM MANAGER COSMETIC Narrative [facility] - 03/15/2024 4:03 AM MANAGER COSMETIC FASTING:YES FASTING: YES Alberto Morris MD LAB BLOOD ORDERABLES F inal Result Performing Organization Address [facility] Co de Phone Number [facility] [address] [facility] [place] [address] * PSA screen (07/06/2023 7:29 AM CDT) PSA 0.36 < OR = 4.00 ng/mL [facility] Comment: The total PSA value from this assay system is standardized against the WHO standard. The test result will be approximately 20% lower when compared to the equimolar-standardized total PSA (Malcolm [place]). Comparison of serial PSA results should be [...] 07/07/2023 2:51 AM CDT FASTING:YES FASTING: YES us Wesley Bailey MD LAB BLOOD ORDERABLES Florina l Result Performing Organization Address [facility] Co de Phone Number [facility] [facility] [address] [facility] [place] [address] from Last 3 Months or Most Recently Relevant to Health Maintenance Insurance [facility] MEDICARE ADVANTAGE [facility] MEDICARE ADVANTAGE Care Teams Cathead Worker Relationship Specialty Start Date End Date Wesley Bailey MD [address] [address] PCP - General Family Medicine 11/22/21
--- OUTSIDE RECORDS SUMMARY | 2024-06-06 06:41 | XMS_ITS | Encounter Summary ---
Author Organization [facility] Address [address] [place] [address] Phone Care Team Providers Care Artificial Flower Maker Name Role Phone Miscellaneous, Not In File Primary Care Provider Unavailable No, Physician Primary Care Provider Wesley Bailey MD Primary Care Provider [phone] Encounter Details Date Type Department Care Team (Latest Contact Info) Description 06/02/2021 Orders Only [facility] Scanning, Provider Social History Tobacco Use Types Packs/Day Years Used Date Smoking Tobacco: Never Sex and Gender Information Value Date Recorded Sex Assigned at Not on file Legal Sex Male 9:09 PM FILTER 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 Gender Identity Not on file Sexual Orientation Not on file documented as of this encounter Plan of Treatment Not on file documented as of this encounter Procedures Procedure Name Priority Date/Time Associated Diagnosis Comments SCAN - RADIOLOGY/IMAGING 06/02/2021 documented in this encounter Results * SCAN - RADIOLOGY/IMAGING (06/02/2021) Anatomical Region Laterality Modality Other us Provider Scanning Final Result documented in this encounter Visit Diagnoses Not on filedocumented in this encounter Care Teams Artificial Flower Maker Relationship Specialty Start Date End Date Miscellaneous, Not In File PCP - General 01/28/21 No, Physician PCP - General 10/03/21 11/21/21 Wesley Bailey MD [address] [address] PCP - General Family Medicine 11/22/21 documented as of this encounter
--- OUTSIDE RECORDS SUMMARY | 2024-06-06 06:41 | XMS_ITS | Encounter Summary ---
Author Organization [facility] Address [address] [place] [address] Phone Care Team Providers Care Floor Installer Name Role Phone Wesley Bailey MD Primary Care Provider [phone] Encounter Details Date Type Department Care Team (Latest Contact Info) Description 12/09/2021 Orders Only [facility] Scanning, Provider Social History Tobacco Use Types Packs/Day Years Used Date Smoking Tobacco: Never Sex and Gender Information Value Date Recorded Sex Assigned at Not on file Legal Sex Male 9:09 PM ENTERPRISE ENGINEER Gender Identity Not on file Sexual Orientation Not on file documented as of this encounter Plan of Treatment Not on file documented as of this encounter Procedures Procedure Name Priority Date/Time Associated Diagnosis Comments SCAN - RADIOLOGY/IMAGING 12/09/2021 documented in this encounter Results * SCAN - RADIOLOGY/IMAGING (12/09/2021) Anatomical Region Laterality Modality Other us Provider Scanning Final Result documented in this encounter Visit Diagnoses Not on filedocumented in this encounter Care Teams Floor Installer Relationship Specialty Start Date End Date Wesley Bailey MD [address] [address] PCP - General Family Medicine 11/22/21 documented as of this encounter
--- OUTSIDE RECORDS SUMMARY | 2024-06-06 06:41 | XMS_ITS | Encounter Summary ---
Author Organization [facility] Address [address] [place] [address] Phone Care Team Providers Care Filler Shredder Helper Name Role Phone No, Physician Primary Care Provider [phone] Wesley Bailey MD Primary Care Provider [phone] Encounter Details Date Type Department Care Team (Latest Contact Info) Description 10/11/2021 Orders Only [facility] Scanning, Provider Social History Tobacco Use Types Packs/Day Years Used Date Smoking Tobacco: Never Sex and Gender Information Value Date Recorded Sex Assigned at Not on file Legal Sex Male 9:09 PM HCC CODERS Gender Identity Not on file Sexual Orientation Not on file documented as of this encounter Plan of Treatment Not on file documented as of this encounter Procedures Procedure Name Priority Date/Time Associated Diagnosis Comments SCAN - RADIOLOGY/IMAGING 10/11/2021 documented in this encounter Results * SCAN - RADIOLOGY/IMAGING (10/11/2021) Anatomical Region Laterality Modality Other us Provider Scanning Final Result documented in this encounter Visit Diagnoses Not on filedocumented in this encounter Care Teams Filler Shredder Helper Relationship Specialty Start Date End Date No, Physician PCP - General 10/03/21 11/21/21 Wesley Bailey MD [address] [address] PCP - General Family Medicine 11/22/21 documented as of this encounter
== END 2024-06-06 06:39 | disposition home or self-care (01) ==
LOC: ANHIMG 06:40
PROVIDERS: PCP Family Medicine; Visit Provider Family Medicine
DX: K80.50 Calculus of bile duct without cholangitis or cholecystitis without obstruction (principal)
CPT/HCPCS: 78227; A9537; J2805

== ENCOUNTER 2024-06-25 09:24 | Outpatient (CLI) | payer MEDICARE, SELFPAY ==
--- NOTE | ~2024-06-25 | US_ITS ---
Limited Abdominal Sonogram: Real-time sonographic imaging of the right upper quadrant was performed. Clinical History: Right upper quadrant pain Findings: The liver appears normal with no evidence of mass lesion or bile duct dilatation. Main por olivier vein demonstrates normal direction of flow. The gallbladder is well distended, and appears normal with no evidence of gallstone or wall thickening. The common bile duct measures 4 mm. The visualize d pancreas, aorta, and IVC are unremarkable. Impression: No significant abnormality seen. Reviewed, dictated and finalized at location M. Impression: No significant abnormality seen.
== END 2024-06-25 09:25 | disposition home or self-care (01) ==
LOC: GOSHIMG 09:24
PROVIDERS: PCP Surgery; Visit Provider Surgery
DX: R10.11 Right upper quadrant pain (principal); R94.8 Abnormal results of function studies of other organs and systems
CPT/HCPCS: 76705

== ENCOUNTER 2024-07-16 08:55 | Outpatient (CLI) | payer MEDICARE, SELFPAY ==
--- OUTSIDE RECORDS SUMMARY | 2024-07-16 09:04 | XMS_ITS | Clinical Summary ---
Author Organization [facility] Address [address] [place] [address] Care Team Providers Care Ostomy Rn Name Role Phone Wesley Bailey MD Primary Care Provider [phone] Allergies No known active allergies Medications levothyroxine [...] 3 Active cyanocobalamin (Vitamin B-12) 100 mcg tabletIndicatio ns:Prevention of Vitamin B12 Deficiency Take 1 tablet (100 mcg total) by mouth daily Active calcium carbonate (OS-LEAH) 1,250 mg (500 mg elemental) tablet Take 1 tablet (1,250 mg total) by mouth daily Active multivitamin tabletIndicatio ns:Vitamin Deficiency Prevention Take 1 tablet by mouth [...] by mouth daily 90 tablet 3 4 025 Active dupilumab (Dupixent Pen) pen injectorIndicat ions:Severe persistent asthma, unspecified whether complicated (HCC),Eosinophi lic asthma Inject 2 mL (300 mg total) under the skin every 14 (fourteen) days 4 mL 11 4 Active Symbicort 160-4.5 mcg/actuation inhaler USE 2 INHALATIONS BY MOUTH TWICE DAILY . RINSE MOUTH AFTER USE WITH WATER . DO NOT SWALLOW 30.6 g 3 5 Active methotrexate 2.5 mg tabletIndicatio ns:autoimmune disease,Sarcoid Take 6 tablets (15 mg total) by mouth every 7 days 72 tablet 5 Active methotrexate 2.5 mg tabletIndicatio ns:autoimmune disease,Sarcoid Take 6 tablets (15 mg total) by mouth every 7 days 72 tablet 5 025 Discontin ued(Reord er) Active Problems Problem Noted Date Diagnosed Date [...] 022 Assessment & Plan (01/16/2023 8:21 PM INVESTMENT BANKING MANAGER): 66 y.o. male with history of severe [...] stable compared to 03/06.Started on dupixent by [facility]monology on 03/14/22 with good improvement. Now [...] being read as more consistent with sarcoidosis -[facility] PRN Assessment & Plan (09/13/2022 11:33 [...] stable compared to 03/06.Started on dupixent by [facility] Pulmonology on 03/14/22 with good improvement. Currently [...] Encounters Date Type Department Care Team Description 06/20/2024 Orders Only [facility] [address] [facility] 8th [place] [address] [place] [address] Alberto Morris MD Sarcoidosis (Primary Dx); High risk medication use from Last 3 Months Immunizations Immunization Administration Dates Next Due Influenza, Quadrivalent, Hig h Dose, Preservative Free, Intrr 11/20/2022 Influenza, Trivalent, Preservative Free, Intramu scular 11/12/2014 Surgical History Surgery Date Site/Laterality Comments [place] TONSILLECTOMY PRIMARY/SECONDARY <AGE 14 Tonsillectomy - (Added by TW Conv) [place] ARTHRD ANT INTERBODY MIN DSC LUMBAR Lumbar [...] on file Legal Sex Male 9:09 PM INVESTMENT BANKING MANAGER Gender Identity Not on file Sexual Orientation Not on file Obstetrics History Last Filed Vital Signs Vital Sign Reading Time Taken Comments Blood Pressure 126/78 01/21/2024 11:55 AM INVESTMENT BANKING MANAGER Pulse 80 01/21/2024 11:55 AM INVESTMENT BANKING MANAGER Temperature 37.1 C (98.7 F) 01/21/2024 11:55 AM INVESTMENT BANKING MANAGER Respiratory Rate 20 01/21/2024 11:55 AM INVESTMENT BANKING MANAGER Oxygen Saturation 94% 01/21/2024 11:55 AM INVESTMENT BANKING MANAGER Inhaled Oxygen Concentration - - Weight 128.4 kg (283 lb) 01/21/2024 11:55 AM INVESTMENT BANKING MANAGER Height 185.4 cm (6' 1) 01/21/2024 11:55 AM INVESTMENT BANKING MANAGER Body Mass Index 37.34 01/21/2024 11:55 AM INVESTMENT BANKING MANAGER Plan of Treatment Health Maintenance Due Date [...] Associated Diagnosis Comments COMPREHENSIVE METABOLIC PANEL Routine 06/18/2024 7:49 AM CDT Sarcoidosis CBC WITH AUTO DIFFERENTIAL Routine 06/18/2024 7:49 AM CDT Sarcoidosis PSA SCREEN Routine 07/06/2023 7:29 AM CDT from Last 3 Months or Most Recently Relevant to Health Maintenance Results * (ABNORMAL) CBC with auto differential (06/18/2024 7:49 AM CDT) Pathologist [facility] WBC 10.6 3.8 - 10.8 Thousand/u L [facility] RBC, POC 4.21 4.20 - 5.80 Million/uL [facility] Hgb 13.7 13.2 - 17.1 g/dL [facility] Hct 42.0 38.5 - 50.0 % [facility] MCV 99.8 80.0 - 100.0 fL [facility] MCH 32.5 27.0 - 33.0 pg [facility] MCHC 32.6 32.0 - 36.0 g/dL [facility] Comment: For adults, a slight decrease in the calculated MCHC value (in the range of 30 to 32 g/dL) is most likely not clinically significant; however, it should be interpreted with caution in correlation with other red cell parameters and the patient's clinical condition. Rdw 13.7 11.0 - 15.0 % [facility] Platelets 285 140 - 400 Thousand/u L [facility] MPV 11.3 7.5 - 12.5 fL [facility] Neutrophils, abs 7,674 1,500 - 7,800 cells/uL [facility] Lymphocytes, abs 1,198 850 - 3,900 cells/uL [facility] Monocyte abs 1,060(H) 200 - 950 cells/uL [facility] Eosinophils, abs 551(H) 15 - 500 cells/uL [facility] Basophils, abs 117 0 - 200 cells/uL [facility] Neutrophils 72.4 % [facility] Lymphocyte pct 11.3 % [facility] Monocytes 10.0 % [facility] Eosinophils 5.2 % [facility] Basophils 1.1 % [facility] Blood 06/18/2024 7:49 AM CDT 06/18/2024 7:49 AM CDT us Alberto Morris MD LAB BLOOD ORDERABLES F inal Result [facility] [address] [place] [address] * (ABNORMAL) Comprehensive metabolic panel (06/18/2024 7:49 AM CDT) Glucose 108(H) 65 - 99 mg/dL [facility] Comment: Fasting reference interval For someone without known diabetes, a glucose value between 100 and 125 mg/dL is consistent with prediabetes and should be confirmed with a follow-up test. BUN 16 7 - 25 mg/dL [facility] Creatinine 0.84 0.70 - 1.35 mg/dL [facility] eGFR 96 > OR = 60 mL/min/1.7 3m2 [facility] BUN/creat ratio SEE NOTE: 6 - 22 (calc) [facility] Comment: Not Reported: BUN and Creatinine are within reference range. Sodium 138 135 - 146 mmol/L [facility] Potassium, pl 4.4 3.5 - 5.3 mmol/L [facility] Chloride 101 98 - 110 mmol/L [facility] CO2 26 20 - 32 mmol/L [facility] Calcium 9.4 8.6 - 10.3 mg/dL [facility] Protein, sr 7.4 6.1 - 8.1 g/dL [facility] Albumin 3.8 3.6 - 5.1 g/dL [facility] GLOBULIN 3.6 1.9 - 3.7 g/dL (calc) [facility] Alb/glob ratio 1.1 1.0 - 2.5 (calc) [facility] Bilirubin, total 0.5 0.2 - 1.2 mg/dL [facility] Alk phos 87 35 - 144 U/L [facility] AST 17 10 - 35 U/L [facility] ALT (SGPT) 18 9 - 46 U/L [facility] Blood 06/18/2024 7:49 AM CDT 06/18/2024 7:49 AM CDT Alberto Morris MD LAB BLOOD ORDERABLES F inal Result [facility] [address] [place] [address] * PSA screen (07/06/2023 7:29 AM CDT) PSA 0.36 < OR = 4.00 ng/mL [facility] Comment: The total PSA value from this assay system is standardized against the WHO standard. The test result will be approximately 20% lower when compared to the equimolar-standardized total PSA (Malcolm [place]). Comparison of serial PSA results should be [...] MD LAB BLOOD ORDERABLES Florina l Result [facility] [address] [address] from Last 3 Months or Most Recently Relevant to Health Maintenance Insurance [facility] MEDICARE ADVANTAGE [facility] MEDICARE ADVANTAGE [facility]IC[facility] Address: [address] [address] [place] [address] Care Teams Ostomy Rn Relationship Specialty Start Date End Date Wesley Bailey MD [address] [address] PCP - General Family Medicine 11/22/21
--- OUTSIDE RECORDS SUMMARY | 2024-07-16 09:04 | XMS_ITS | Referral Summary ---
Author Organization [facility] Address [address] [place] [address] Care Team Providers Care Preform Plate Maker Name Role Phone Wesley Bailey MD Primary Care Provider [phone] Encounters Date Type Department Care Team Description 06/20/2024 Orders Only [facility] Pulmonary [address] [facility] [address] 8[address] [place] [address] [place] [address] Alberto Morris MD Sarcoidosis (Primary Dx); High risk medication use from Last 3 Months Allergies No known [...] 022 Assessment & Plan (01/16/2023 8:21 PM YARD CONDUCTOR): 66 y.o. male with history of severe [...] stable compared to 03/06.Started on dupixent by [facility] on 03/14/22 with good [...] being read as more consistent with sarcoidosis -RTC PRN Assessment & Plan (09/13/2022 11:33 AM [...] stable compared to 03/06.Started on dupixent by [facility] on 03/14/22 with good [...] on file Legal Sex Male 9:09 PM YARD CONDUCTOR Gender Identity Not on file Sexual Orientation Not on file Last Filed Vital Signs Vital Sign Reading Time Taken Comments Blood Pressure 126/78 01/21/2024 11:55 AM YARD CONDUCTOR Pulse 80 01/21/2024 11:55 AM YARD CONDUCTOR Temperature 37.1 C (98.7 F) 01/21/2024 11:55 AM YARD CONDUCTOR Respiratory Rate 20 01/21/2024 11:55 AM YARD CONDUCTOR Oxygen Saturation 94% 01/21/2024 11:55 AM YARD CONDUCTOR Inhaled Oxygen Concentration - - Weight 128.4 kg (283 lb) 01/21/2024 11:55 AM YARD CONDUCTOR Height 185.4 cm (6' 1) 01/21/2024 11:55 AM YARD CONDUCTOR Body Mass Index 37.34 01/21/2024 11:55 AM YARD CONDUCTOR Plan of Treatment Not on file Procedures Procedure Name Priority Date/Time Associated Diagnosis Comments COMPREHENSIVE METABOLIC PANEL Routine 06/18/2024 7:49 AM CDT Sarcoidosis CBC WITH AUTO DIFFERENTIAL Routine 06/18/2024 7:49 AM CDT Sarcoidosis PSA SCREEN Routine 07/06/2023 7:29 AM CDT from Last 3 Months or Most Recently Relevant to Health Maintenance Results * (ABNORMAL) CBC with auto differential (06/18/2024 7:49 AM CDT) Pathologist [facility] WBC 10.6 3.8 - 10.8 Thousand/u L [...] Eosinophils, abs 551(H) 15 - 500 cells/uL [facility] Basophils, abs 117 0 - 200 cells/uL [facility] Neutrophils 72.4 % [facility] Lymphocyte pct 11.3 % [facility] Monocytes 10.0 % [facility] Eosinophils 5.2 % [facility] Basophils 1.1 % [facility] Blood 06/18/2024 7:49 AM CDT 06/18/2024 7:49 AM CDT us Alberto Morris MD LAB BLOOD ORDERABLES F inal Result LI [facility] [address] [place] [address] * (ABNORMAL) Comprehensive metabolic panel (06/18/2024 7:49 AM CDT) Glucose 108(H) 65 - 99 mg/dL [facility] Comment: Fasting reference interval For someone without known diabetes, a glucose value between 100 and 125 mg/dL is consistent with prediabetes and should be confirmed with a follow-up test. BUN 16 7 - 25 mg/dL [facility] Creatinine 0.84 0.70 - 1.35 mg/dL Li [facility] eGFR 96 > OR = 60 mL/min/1.7 3m2 [facility] BUN/creat ratio SEE NOTE: 6 - 22 (calc) Li [facility] Comment: Not Reported: BUN and Creatinine are within reference range. Sodium 138 135 - 146 mmol/L [facility] Potassium, pl 4.4 3.5 - 5.3 mmol/L [facility] Chloride 101 98 - 110 mmol/L Li [facility] Systems[facility] g[facility] CO2 26 20 - 32 mmol/L Li [facility] Calcium 9.4 8.6 - 10.3 mg/dL Li [facility] Protein, sr 7.4 6.1 - 8.1 g/dL Li [facility] Albumin 3.8 3.6 - 5.1 g/dL Li [facility] g[facility] GLOBULIN 3.6 1.9 - 3.7 g/dL (calc) [facility] Alb/glob ratio 1.1 1.0 - 2.5 (calc) [facility] Bilirubin, total 0.5 0.2 - 1.2 mg/dL [facility] Alk phos 87 35 - 144 U/L [facility] AST 17 10 - 35 U/L [facility] ALT (SGPT) 18 9 - 46 U/L [facility] Blood 06/18/2024 7:49 AM CDT 06/18/2024 7:49 AM CDT us Alberto Morris MD LAB BLOOD ORDERABLES F inal Result Performing Organization Address [facility] Co de Phone Number [facility] [address] [place] [address] * PSA screen (07/06/2023 7:29 AM CDT) PSA 0.36 < OR = 4.00 ng/mL [facility] Comment: The total PSA value from [...] ORDERABLES Florina l Result Performing Organization Address City/[facility]/ZIP Co de Phone Number [facility] [address] [address] from Last 3 Months or Most Recently Relevant to Health Maintenance Insurance [facility] MEDICARE ADVANTAGE [facility] MEDICARE ADVANTAGE Care Teams Preform Plate Maker Relationship Specialty Start Date End Date Wesley Bailey MD [address] [address] PCP - General Family Medicine 11/22/21
--- OUTSIDE RECORDS SUMMARY | 2024-07-16 09:05 | XMS_ITS | Encounter Summary ---
Author Organization [facility] [employer] [facility] Address [address] [place] [address] Phone Care Team Providers Care Derrick Boat Captain Name Role Phone Miscellaneous, Not In File Primary Care Provider Unavailable No, Physician Primary Care Provider [phone] Wesley Bailey MD Primary Care Provider [phone] Encounter Details Date Type Department Care Team (Latest Contact Info) Description 06/09/2020 Orders Only [facility] Scanning, Provider Social History Tobacco Use Types Packs/Day Years Used Date Smoking Tobacco: Never Sex and Gender Information Value Date Recorded Sex Assigned at Not on file 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
--- OUTSIDE RECORDS SUMMARY | 2024-07-16 09:05 | XMS_ITS | Encounter Summary ---
Author Organization [facility] Address [address] [place] [address] Phone Care Team Providers Care Superintendent Stations Name Role Phone No, Physician Primary Care Provider [phone] Wesley Bailey MD Primary Care Provider [phone] Encounter Details Date Type Department Care Team (Latest Contact Info) Description 10/11/2021 Orders Only [facility] Scanning, Provider Social History Tobacco Use Types Packs/Day Years Used Date Smoking Tobacco: Never Sex and Gender Information Value Date Recorded Sex Assigned at Not on file 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
--- OUTSIDE RECORDS SUMMARY | 2024-07-16 09:05 | XMS_ITS | Encounter Summary ---
Author Organization [facility] Address [address] [place] [address] Phone Care Team Providers Care Lunch Cook Name Role Phone Miscellaneous, Not In File Primary Care Provider Unavailable No, Physician Primary Care Provider [phone] Wesley Bailey MD Primary Care Provider [phone] Encounter Details Date Type Department Care Team (Latest Contact Info) Description 01/16/2020 Orders Only [facility] Scanning, Provider Social History Tobacco Use Types Packs/Day Years Used Date Smoking Tobacco: Never Sex and Gender Information Value Date Recorded Sex Assigned at Not on file Legal Sex Male 9:09 PM QI SPECIALIST Gender Identity Not on file Sexual Orientation [...] on filedocumented in this encounter Care Teams Lunch Cook Relationship Specialty Start Date End Date Miscellaneous, Not In File PCP - General 01/28/21 No, Physician PCP - General 10/03/21 11/21/21 Wesley Bailey MD [address] [address] PCP - General Family Medicine 11/22/21 documented as of this encounter
--- OUTSIDE RECORDS SUMMARY | 2024-07-16 09:05 | XMS_ITS | Encounter Summary ---
Author Organization [facility] [facility] Address [address] [place] [address] Phone Care Team Providers Care Content Engineer Name Role Phone Miscellaneous, Not In File Primary Care Provider Unavailable No, Physician Primary Care Provider [phone] Wesley Bailey MD Primary Care Provider [phone] Encounter Details Date Type Department Care Team (Latest Contact Info) Description 06/02/2021 Orders Only [facility] Scanning, Provider Social History Tobacco Use Types Packs/Day Years Used Date Smoking Tobacco: Never Sex and Gender Information Value Date Recorded Sex Assigned at Not on file 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
--- OUTSIDE RECORDS SUMMARY | 2024-07-16 09:05 | XMS_ITS | Encounter Summary ---
Author Organization [facility] Address [address] [place] [address] Phone Care Team Providers Care Arc Air Operator Name Role Phone Miscellaneous, Not In File Primary Care Provider Unavailable No, Physician Primary Care Provider [phone] Wesley Bailey MD Primary Care Provider [phone] Encounter Details Date Type Department Care Team (Latest Contact Info) Description 12/02/2020 Orders Only [facility] Scanning, Provider Social History Tobacco Use Types Packs/Day Years Used Date Smoking Tobacco: Never Sex and Gender Information Value Date Recorded Sex Assigned at Not on file 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
--- OUTSIDE RECORDS SUMMARY | 2024-07-16 09:05 | XMS_ITS | Encounter Summary ---
Author Organization [facility] Address [address] [place] [address] Phone Care Team Providers Care Couture Alterations Dressmaker Name Role Phone Wesley Bailey MD Primary Care Provider [phone] Encounter Details Date Type Department Care Team (Latest Contact Info) Description 12/09/2021 Orders Only [facility] Scanning, Provider Social History Tobacco Use Types Packs/Day Years Used Date Smoking Tobacco: Never Sex and Gender Information Value Date Recorded Sex Assigned at Not on file 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
--- NOTE | 2024-07-16 09:30 | ECG_ITS ---
Test Date: 2024-07-16 09:18:18 Measurements Intervals Clune Rate: 72 P: 22 ND: 194 QRS: -3 QRSD: 109 T: 16 QT: 364 QTc: 398 Interpretive Statements SINUS RHYTHM BASELINE ARTIFACT- I, II, AVR, AVL, AVF, V1-V6 NORMAL ECG No previous ECG available for comparison Electronically Signed On 07-16-2024 09:19:44 CDT by Damian Ortiz D.O.
[2024-07-16 09:47] LABS: Basophils Absolute Auto 0.1 K/mm3 (0.0-0.1); Eosinophils Absolute Auto 0.7 K/mm3 (0-0.3); Eosinophils Percent Auto 6.2 % (0-4.4); Hematocrit 42.6 % (42.0-52.0); Hemoglobin 13.7 g/dL (14.0-18.0); Immature Granulocyte Percent A 0.9 % (0-0.5); Lymphocytes Absolute Auto 1.12 K/mm3 (0.9-3.2); Lymphocytes Percent Auto 10.2 % (18.3-44.2); Mean Corpuscular HGB Conc 32.2 g/dl (32-36); Mean Corpuscular Hemoglobin 32.1 pg (26-34); Mean Corpuscular Volume 99.8 fl (80-100); Mean Platelet Volume 10.6 fl (7.4-10.4); Monocytes Absolute Auto 1.2 K/mm3 (0.1-0.6); Monocytes Percent Auto 10.8 % (2.6-8.5); Neutrophils Absolute Auto 7.8 K/mm3 (1.3-6.7); Neutrophils Percent Auto 70.9 % (45.5-73.1); Platelet Count Result 257 k/mm3 (150-375); Red Blood Count 4.27 M/mm3 (4.6-6.20)
[2024-07-16 10:01] LABS: Alanine Aminotransferase 25 U/L (6-50); Albumin Level 4.1 g/dL (3.5-5.1); Alkaline Phosphatase 89 U/L (38-126); Amylase 58 U/L (30-110); Aspartate Amino Transferase 30 U/L (17-59); Bilirubin Direct 0.1 mg/dL (0-0.3); Bilirubin,Total 0.5 mg/dL (0.2-1.3); Lipase 39 U/L (23-300); Total Protein 7.9 g/dL (6.3-8.2)
== END 2024-07-16 08:56 | disposition home or self-care (01) ==
PROVIDERS: PCP Family Medicine; Visit Provider Surgery
DX: Z01.818 Encounter for other preprocedural examination (principal); K81.1 Chronic cholecystitis; I10 Essential (primary) hypertension
CPT/HCPCS: 36415; 80076; 82150; 83690; 85025; 86850; 86900; 86901; 93005

== ENCOUNTER 2024-07-18 07:26 | Outpatient (CLI) | payer MEDICARE, SELFPAY ==
[2024-07-18 07:59] LABS: Basophils Absolute Auto 0.1 K/mm3 (0.0-0.1); Basophils Percent Auto 1.1 % (0.2-1.2); Eosinophils Absolute Auto 0.6 K/mm3 (0-0.3); Eosinophils Percent Auto 6.1 % (0-4.4); Immature Granulocyte Absolute 0.08 K/mm3 (0.00-0.031); Immature Granulocyte Percent A 0.8 % (0-0.5); Lymphocytes Absolute Auto 1.13 K/mm3 (0.9-3.2); Lymphocytes Percent Auto 10.8 % (18.3-44.2); Mean Corpuscular HGB Conc 32.6 g/dl (32-36); Mean Corpuscular Hemoglobin 32.5 pg (26-34); Mean Corpuscular Volume 99.8 fl (80-100); Mean Platelet Volume 10.6 fl (7.4-10.4); Monocytes Absolute Auto 1.1 K/mm3 (0.1-0.6); Monocytes Percent Auto 10.5 % (2.6-8.5); Neutrophils Absolute Auto 7.4 K/mm3 (1.3-6.7); Neutrophils Percent Auto 70.7 % (45.5-73.1); Platelet Count Result 265 k/mm3 (150-375); Red Blood Count 4.31 M/mm3 (4.6-6.20); Red Cell Distribution Width 13.8 % (11.5-14.5); White Blood Count 10.4 K/mm3 (4.5-10.0)
== END 2024-07-18 07:27 | disposition home or self-care (01) ==
LOC: ANHLAB 07:26
PROVIDERS: PCP Family Medicine; Visit Provider Surgery
DX: K81.1 Chronic cholecystitis (principal)
CPT/HCPCS: 36415; 85025

== ENCOUNTER 2024-07-24 04:38 | Day surgery (SDC) | payer MEDICARE, SELFPAY ==
[2024-07-08 13:17] VITALS: BMI 31.6
--- NOTE | 2024-07-08 13:42 | PC.NURSE ---
Report to the Outpatient Waiting Room, entrance under the green pavilion located off [facility], at time ___10:30AM____ on date ___07/24/24___. Planned Procedure Time: ___12:30PM___.? Time changes happen often and if your time is changed the preop area will call you the afternoon before. - You and your visitor will be asked to self-screen and do not enter if you have any COVID symptoms. Please call surgeon if you need to reschedule. - A mask is optional within the hospital at this time. Patients may have clear liquids (water, carbonated beverages, clear teas, apple juice) unti 3 hours prior to surgery (9:30AM) with a maximum of 20 ounces. - No food from midnight until time of surgery and no smoking, or chewing tobacco (or any form of nicotine). No chewing gum, candy or mints. Take only the following medications with a SIP of water on the morning of surgery: ____SYMBICORT INHALER, LEVOTHYROXINE MAY TAKE GABAPENTIN, TRAMADOL AND ALBUTEROL INHALER NEEDED. DO NOT STOP ANY OF YOUR OTHER PRESCRIPTION MEDICATIONS PRIOR TO SURGERY EXCEPT THE FOLLOWING Hold all vitamins and supplements for 3 days per anesthesiologist. LAST DOSE 07/20/24 Medications to discontinue per physician ____HOLD IBUPROFEN PER DR NARVAEZ Date to take last dose Please no make-up, nail kinyarwanda, hairspray, perfume, deodorant, or body powder the day of surgery.? No jewelry (including any body piercings) or valuables the day of surgery, leave them at home.? Please take a shower or bath the night before, or the morning of, surgery with an antibacterial soap.? Wear comfortable, loose fitting clothing.? - Jewelry must be removed prior to entering the operating room.? Rings and piercings that are not removed may be cut off. - The hospital will not accept responsibility for valuables.? - Please leave all valuables, including medications, at home the day of surgery. If you are going home after surgery, a licensed truck driver supervisor must drive you home.? - NO public transportation without another adult if you receive anesthesia. - We recommend that an adult stay with you for 24 hours following discharge. - We also recommend that you do not drive, make important decision, drink alcoholic beverages, or take any drugs that were not prescribed by your health care provider for at least 24 hours after your discharge time. Follow any additional instructions given to you from your surgeon. Telephone instructions given to ____PATIENT and asked if any additional questions and then verbalized understanding. Patient advised to call surgeon office or pre surgery nurse liaison [phone] if any additional questions.
--- NOTE | 2024-07-22 08:03 | P.SS_ITS ---
Same Day Admit/Disch: HPI History of Present Illness Chief complaint: Chronic cholecystitis Narrative: Nelson Yanes is a 68 year old male who has been troubled with right upper quadrant abdominal pain for at least 2 or 3 years. This pain is associated with nausea. He had testing for this both at [facility]. His testing here was in 2020 and showed both an ultrasound and a CT scan that did not show gallstones or cholecystitis. Since March, this pain has been getting worse. His was diagnosed with diabetes and he has been following her diet for several months. He has lost 25 lb in the process. He recently had HIDA scan which showed a low gallbladder ejection fraction of 10%. I repeated an ultrasound in June and this also was negative for gallstones. Patient runs an elevated white blood cell count chronically. He sees a electronics commodity manager for this and asthma. He has a history of chronic allergic aspergillosis which is felt to be the cause of the elevated white blood cell count. He is taken to surgery at this time for laparoscopic cholecystectomy for chronic cholecystitis. [facility] Past Medical History Medical History Gallbladder disorder Asthma Allergies BMI 33.0-33.9,adult Immunity to measles, mumps, and rubella determined by serologic test (06/05/24) Patient has Immunity to measles, mumps, and rubella on 06/05/2024. Recurrent biliary colic HIDA scan on 06/07/2023 reveals gallbladder dysfunction with ejection fraction 10%. Benign paroxysmal positional vertigo due to bilateral vestibular disorder Sarcoidosis of lung (~2023) treated by electronics commodity manager At low risk for fall Mixed hyperlipidemia cholesterol 211, triglycerides 88, HDL 59, LDL 133 with ratio 3.6 on 07/06/2023. cholesterol 141, triglycerides 99, HDL 44, LDL 79 with ratio 3.2 on 03/14/2024. Bilateral chronic knee pain Chronic pain of left ankle Nail fungus Essential hypertension (11/14/21) Nondisplaced fracture of medial malleolus left ankle Arthritis BMI 35.0-35.9,adult Obesity (BMI 35.0-39.9 without comorbidity) BPH without obstruction/lower urinary tract symptoms Vitamin B12 deficiency anemia (04/28/21) level low at 368 with goal greater than 400 with hemoglobin 14.3 on 04/28/2021. vitamin B12 1064 with hemoglobin 14.7 on 09/20/2021. Level normal at 12 119 on 06/08/2022 with hemoglobin 13.4. BMI 36.0-36.9,adult Skin tags, multiple acquired Candidiasis Abdominal pain Viral pneumonia Encounter for screening for other viral diseases Acute bronchitis Abnormal fasting glucose Fasting glucose 86 with hemoglobin A1c normal at 5.6 on 04/28/2021. Glucose 95 on 09/20/2021. Hemoglobin A1c 5.7 on 06/08/2022. Glucose 104 with hemoglobin A1c 6.1 with GFR 92 on 03/14/2024. Seasonal allergic rhinitis Contracture of joint of finger Injury of extensor tendon of left hand Perianal rash Benign colon polyp Repeat colonoscopy on 10/23/2022 with large pedunculated sigmoid Tubular adenoma polyp with recheck in 3 years. Hypothyroidism, unspecified TSH suppressed at 0.05 with free T4 elevated at 1.9 with T3 total 121 on 04/28/2021. TSH 0.36 with free T4 1.4 on 09/20/2021. TSH 3.16 with free T4 1.4 on 06/08/2022. TSH 14.87 on 03/14/2024. TSH 0.36 on 06/05/2024. Laceration of left index finger with complication Prostate cancer screening PSA normal at 0.33 on 04/28/2021. PSA 0.36 on 06/08/2022. Colon cancer screening Neuropathy of both feet Small fiber peripheral neuropathy on EMG and nerve conduction study. Compression fracture of lumbosacral spine with routine healing Obstructive sleep apnea Mild intermittent asthma PFT on 06/02/2021 with moderate obstructive defect with no significant bronchodilator effect. Hypothyroid Surgical History Surgical History History of back surgery Nov 2014 Family History Family History Mother Asthma Diabetes mellitus Alcoholism Father Diabetes mellitus Heart disease Hypertension Grandparent Cancer Grandparent Heart disease Grandparent No problems noted. Grandparent Diabetes mellitus Sibling Diabetes mellitus Breathing problem Depression Sibling Breast cancer Sibling Hypertension Social History Social History Smoking status: Never smoker Alcohol intake: current Alcohol use details: 2-3 drinks per month Substance use: never Substance use type: does not use Do You Feel Safe in your Home?: Yes Lack of Transportation: No Lack of Food: Never True Current Housing: I Have Housing Concerned About Future Housing: No Difficulty Paying Gas/Electric Bills: No Difficulty Paying for Meds: No Currently Unemployed: No Education: Trade/Vocational Certificate Difficulty w/ Childcare or Family Care: No Living arrangements: with family Additional living arrangements comments: Occupation/Education: retired 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 Gender identity (if verbalized by the patient): Male Spiritual care concerns: No Same Day Admit/Disch: Med Pre-admit Medications Home Medications ?Medication ?Instructions ?Recorded ?Confirmed ?Type albuterol sulfate 90 mcg/actuation 2 puff inhalation Q4H PRN 12/15/19 07/08/24 Rx aerosol inhaler (Ventolin HFA) bronchospasm #54 grams ibuprofen 200 mg capsule 400 mg PO Q6H PRN Pain 10/04/21 07/24/24 History dupilumab 300 mg/2 mL subcutaneous 300 mg subcut [id number] 04/18/22 07/08/24 History pen injector (Dupixent) budesonide-formoterol HFA 160 2 puff inhalation Q12H 06/12/22 07/24/24 History mcg-4.5 mcg/actuation aerosol inhaler (Symbicort) gabapentin 800 mg tablet 800 mg PO BID PRN NEUROPATHY 07/11/23 07/24/24 History folic acid 1 mg tablet 1 mg PO DAILY methotrexate 10/15/23 07/08/24 History irbesartan 150 mg tablet 150 mg PO DAILY #90 tabs 12/03/23 07/24/24 Rx methotrexate sodium 2.5 mg tablets 15 mg PO WEEKLY 02/20/24 07/08/24 History in a dose pack tramadol 50 mg tablet 50 mg PO Q6H PRN pain #40 tabs 06/03/24 07/08/24 Rx atorvastatin 20 mg tablet 20 mg PO QHS #90 tabs 06/17/24 07/24/24 Rx levothyroxine 200 mcg tablet 200 mcg PO DAILY 07/08/24 07/24/24 History (Levoxyl) ibuprofen 600 mg tablet 600 mg PO Q6H PRN pain #14 tabs 07/24/24 Rx oxycodone-acetaminophen 5 mg-325 0.5 - 1 tablet PO Q4H PRN pain #10 07/24/24 Rx mg tablet (Percocet) tabs Review of Systems Review of Systems All systems reviewed & are unremarkable except as noted in HPI and below ( HPI) Exam Const: General: comfortable, no acute distress, alert and awake HENMT: Head: normocephalic and atraumatic Mouth: Yes Normal oral and palatal mucosa present Eyes: Conjunctivae: conjunctivae normal Pupils: Equal, round and reactive pupils present EOM: EOMs intact bilaterally Neck: Neck: normal visual inspection, no lymphadenopathy and nontender Resp: Effort & Inspection: normal respiratory effort Auscultation: clear to auscultation bilaterally Cardio: Rate: regular rate Rhythm: regular rhythm Heart sounds: no gallops, no murmurs and no rubs GI: Inspection: non-distended and visible herniation ( small umbilical hernia, diastasis recti) GI Palp: Yes Soft to palpation, No Tenderness to palpation present (GI), No Hepatomegaly present, No Splenomegaly present and Yes Hernia present umbilical < 3 cm Skin: Lesions: no lesions Rashes: no rashes Neuro: General: no focal motor deficits and CN's II-XI intact bilaterally Cranial nerves: Yes Equal, round and reactive pupils present, Yes Bilaterally intact EOM present, Yes facial symmetry and Yes Midline tongue present Speech: normal speech Motor exam (neuro): 5/5 motor strength present throughout and Motor abnormalities not present Extrem: General: no clubbing, cyanosis or edema and edema Psych: Affect: normal affect Thought process: Normal thought process present Insight: Good insight present (Psych) DS: Summary Time Spent with Patient Time attestation: Total time spent providing and/or coordinating discharge services: DS: Admitting Diagnosis Discharge Date 07/24/2024 Admitting Diagnosis * acalculous chronic cholecystitis - after discussion, plan to proceed with laparoscopic cholecystectomy under general endotracheal anesthesia as an outpatient. Procedure, risks, benefits, alternatives, as well as the usual length of recovery have been discussed. All questions were answered. Patient understands and wishes to go ahead * chronic leukocytosis * chronic allergic aspergillosis * essential hypertension * asthma * obstructive sleep apnea DS: Discharge Diagnosis Discharge Diagnosis (1) Chronic cholecystitis: Code(s): K81.1 - Chronic cholecystitis Status: Chronic Assessment and Plan: Laparoscopic cholecystectomy performed by Dr. deal 07/24/2024 Discharge Plan Discharge Patient Disposition: Home Discharge Instructions: Remember to use your incentive spirometer during your recovery to promote breathing. 1. May shower the day after surgery over incisions. 2. Call office for: -Wound increasingly painful or bleeding -Vomiting -Fever of greater than 101 degrees 3. Expect some blood on dressing and old blood on skin. 4. If no bowel movement for three days, take 1 oz. (30 ml) Milk of Magnesia, if no results, take Fleets enema. 5. No heavy lifting > 15-20 pounds for 2 weeks. 6. No driving for 3 days or while taking narcotic pain medications. 7. Up walking 10-30 minutes three times per day. 8. Resume previous home medications. 9. Follow-up 10-14 days in office for wound check or as previously scheduled. 10. Oral pain medications prescription to be sent home with patient. 11. NUTRITION: Start out by drinking fluids and increase your diet as tolerated. If you experience nausea, try dry toast, crackers, and 7-UP. If nausea or vomiting persists, contact your surgeon?s office. Patient Language: Divehi Stand Alone Forms: General Discharge Instructions Follow-up/Referrals: Andreas Deal MD [Physician] - 3 Weeks Discharge Medications: New oxycodone-acetaminophen [Percocet] 5-325 mg tablet 0.5 - 1 tablet PO Q4H PRN (Reason: pain) Qty: 10 0RF ibuprofen 600 mg tablet 600 mg PO Q6H PRN (Reason: pain) Qty: 14 0RF Continued ibuprofen 200 mg capsule 400 mg PO Q6H PRN (Reason: Pain) budesonide-formoterol [Symbicort] 160-4.5 mcg/actuation HFA aerosol inhaler 2 puff inhalation Q12H Patient Comments: prescribed by electronics commodity manager gabapentin 800 mg tablet 800 mg PO BID PRN (Reason: NEUROPATHY) Patient Comments: prescribed by orthopedic surgeon methotrexate sodium 2.5 mg tablets,dose pack 15 mg PO WEEKLY Patient Comments: restarted by pulmonologists 10/08/2023. tramadol 50 mg tablet 50 mg PO Q6H PRN (Reason: pain) Qty: 40 0RF Rx Instructions: take with acetaminophen 325 mg Dupixent Pen 300 mg/2 mL Pen Injector 300 mg SUBCUT [id number] levothyroxine [Levoxyl] 200 mcg tablet 200 mcg PO DAILY albuterol sulfate [Ventolin HFA] 90 mcg/actuation HFA aerosol inhaler 2 puff INHALATION Q4H PRN (Reason: bronchospasm) Qty: 54 3RF folic acid 1 mg tablet 1 mg PO DAILY Patient Comments: prescribed by electronics commodity manager irbesartan 150 mg tablet 150 mg PO DAILY Qty: 90 3RF Patient Comments: HS atorvastatin 20 mg tablet 20 mg PO QHS Qty: 90 3RF
[2024-07-24] VITALS (10 sets, daily range): BP systolic 100–134; BP diastolic 48–72; PULSE 59–76; RESP 10–20; TEMP 36.1–36.4; O2SAT 94–100; BMI 30.9
--- OUTSIDE RECORDS SUMMARY | 2024-07-24 04:42 | XMS_ITS | Encounter Summary ---
Author Organization [facility] Address [address] [place] [address] Phone Care Team Providers Care Child & Adolescent Psychiatrist Name Role Phone Miscellaneous, Not In File Primary Care Provider Unavailable No, Physician Primary Care Provider [phone] Wesley Bailey MD Primary Care Provider [phone] Encounter Details Date Type Department Care Team (Latest Contact Info) Description 01/16/2020 Orders Only [facility] Scanning, Provider Social History Tobacco Use Types Packs/Day Years Used Date Smoking Tobacco: Never Sex and Gender Information Value Date Recorded Sex Assigned at Not on file Legal 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
--- OUTSIDE RECORDS SUMMARY | 2024-07-24 04:42 | XMS_ITS | Encounter Summary ---
Author Organization [facility] Address [address] [place] [address] Phone Care Team Providers Care Film Editor Name Role Phone Miscellaneous, Not In File Primary Care Provider Unavailable No, Physician Primary Care Provider [phone] Wesley Bailey MD Primary Care Provider [phone] Encounter Details Date Type Department Care Team (Latest Contact Info) Description 12/02/2020 Orders Only [facility] Scanning, Provider Social History Tobacco Use Types Packs/Day Years Used Date Smoking Tobacco: Never Sex and Gender Information Value Date Recorded Sex Assigned at Not on file Legal Sex Male 9:09 PM SCRATCHER Gender Identity Not on file Sexual Orientation [...] on filedocumented in this encounter Care Teams Film Editor Relationship Specialty Start Date End Date Miscellaneous, Not In File PCP - General 01/28/21 No, Physician PCP - General 10/03/21 11/21/21 Wesley Bailey MD [address] [address] PCP - General Family Medicine 11/22/21 documented as of this encounter
--- OUTSIDE RECORDS SUMMARY | 2024-07-24 04:42 | XMS_ITS | Encounter Summary ---
Author Organization [facility] Address [address] [place] [address] Phone Care Team Providers Care Food And Drug Inspector Name Role Phone Miscellaneous, Not In File Primary Care Provider Unavailable No, Physician Primary Care Provider [phone] Wesley Bailey MD Primary Care Provider [phone] Encounter Details Date Type Department Care Team (Latest Contact Info) Description 06/09/2020 Orders Only [facility] Scanning, Provider Social History Tobacco Use Types Packs/Day Years Used Date Smoking Tobacco: Never Sex and Gender Information Value Date Recorded Sex Assigned at Not on file 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
--- OUTSIDE RECORDS SUMMARY | 2024-07-24 04:42 | XMS_ITS | Encounter Summary ---
Author Organization [facility] Address [address] [place] [address] Phone Care Team Providers Care Outbound Telemarketer Name Role Phone No, Physician Primary Care Provider [phone] Wesley Bailey MD Primary Care Provider [phone] Encounter Details Date Type Department Care Team (Latest Contact Info) Description 10/11/2021 Orders Only [facility] Scanning, Provider Social History Tobacco Use Types Packs/Day Years Used Date Smoking Tobacco: Never Sex and Gender Information Value Date Recorded Sex Assigned at Not on file Legal 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
--- OUTSIDE RECORDS SUMMARY | 2024-07-24 04:42 | XMS_ITS | Encounter Summary ---
Author Organization [facility] Address [address] [place] [address] Phone Care Team Providers Care Bearing Press Machine Operator Name Role Phone Wesley Bailey MD Primary Care Provider [phone] Encounter Details Date Type Department Care Team (Latest Contact Info) Description 12/09/2021 Orders Only [facility] Scanning, Provider Social History Tobacco Use Types Packs/Day Years Used Date Smoking Tobacco: Never Sex and Gender Information Value Date Recorded Sex Assigned at Not on file Legal Sex Male 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
--- OUTSIDE RECORDS SUMMARY | 2024-07-24 04:42 | XMS_ITS | Encounter Summary ---
Author Organization [facility] Address [address] [place] [address] Phone Care Team Providers Care Prop Attendant Name Role Phone Miscellaneous, Not In File Primary Care Provider Unavailable No, Physician Primary Care Provider [phone] Wesley Bailey MD Primary Care Provider [phone] Encounter Details Date Type Department Care Team (Latest Contact Info) Description 06/02/2021 Orders Only [facility] Scanning, Provider Social History Tobacco Use Types Packs/Day Years Used Date Smoking Tobacco: Never Sex and Gender Information Value Date Recorded Sex Assigned at Not on file 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
--- OUTSIDE RECORDS SUMMARY | 2024-07-24 04:42 | XMS_ITS | Referral Summary ---
Author Organization [facility] Address [address] [place] [address] Care Team Providers Care Bingo Checker Name Role Phone Wesley Bailey MD Primary Care Provider [phone] Encounters Date Type Department Care Team Description 06/20/2024 Orders Only [facility] [address] [facility] 8th [place] [address] [place] [address] Alberto Morris MD Sarcoidosis (Primary [...] 022 Assessment & Plan (01/16/2023 8:21 PM FIRE OPERATIONS FORESTER): 66 y.o. male with history of severe [...] stable compared to 03/06.Started on dupixent by [facility] Pulmonology on 03/14/22 with good improvement. [...] being read as more consistent with sarcoidosis -[facility] PRN Assessment & Plan (09/13/2022 11:33 [...] stable compared to 03/06.Started on dupixent by [facility] Pulmonology on 03/14/22 with good improvement. [...] on file Legal Sex Male 9:09 PM FIRE OPERATIONS FORESTER Gender Identity Not on file Sexual Orientation Not on file Last Filed Vital Signs Vital Sign Reading Time Taken Comments Blood Pressure 126/78 01/21/2024 11:55 AM FIRE OPERATIONS FORESTER Pulse 80 01/21/2024 11:55 AM FIRE OPERATIONS FORESTER Temperature 37.1 C (98.7 F) 01/21/2024 11:55 AM FIRE OPERATIONS FORESTER Respiratory Rate 20 01/21/2024 11:55 AM FIRE OPERATIONS FORESTER Oxygen Saturation 94% 01/21/2024 11:55 AM FIRE OPERATIONS FORESTER Inhaled Oxygen Concentration - - Weight 128.4 kg (283 lb) 01/21/2024 11:55 AM FIRE OPERATIONS FORESTER Height 185.4 cm (6' 1) 01/21/2024 11:55 AM FIRE OPERATIONS FORESTER Body Mass Index 37.34 01/21/2024 11:55 AM FIRE OPERATIONS FORESTER Plan of Treatment Not on file Procedures Procedure Name Priority Date/Time Associated Diagnosis Comments COMPREHENSIVE METABOLIC PANEL Routine 06/18/2024 7:49 AM CDT Sarcoidosis CBC WITH AUTO DIFFERENTIAL Routine 06/18/2024 7:49 AM CDT Sarcoidosis PSA SCREEN Routine 07/06/2023 7:29 AM CDT from Last 3 Months or Most Recently Relevant to Health Maintenance Results * (ABNORMAL) CBC with auto differential (06/18/2024 7:49 AM CDT) Pathologist [facility] WBC 10.6 3.8 - 10.8 Thousand/u [...] [facility] Lymphocyte pct 11.3 % [facility] Monocytes 10.0 % [facility] Eosinophils 5.2 % [facility] Basophils 1.1 % [email or web address] Blood 06/18/2024 7:49 AM CDT 06/18/2024 7:49 AM CDT us Alberto Morris MD LAB BLOOD ORDERABLES F inal Result [facility] [address] [place] [address] * (ABNORMAL) Comprehensive metabolic panel (06/18/2024 7:49 AM CDT) Glucose 108(H) 65 - 99 mg/dL [facility] Comment: Fasting reference interval For someone without known diabetes, a glucose value between 100 and 125 mg/dL is consistent with prediabetes and should be confirmed with a follow-up test. BUN 16 7 - 25 mg/dL [facility] Creatinine 0.84 0.70 - 1.35 mg/dL [facility] eGFR 96 > OR = 60 mL/min/1.7 3m2 [email or web address] BUN/creat ratio SEE NOTE: 6 - 22 (calc) [email or web address] Comment: Not Reported: BUN and Creatinine are within reference range. Sodium 138 135 - 146 mmol/L [facility] Potassium, pl 4.4 3.5 - 5.3 mmol/L [facility] Chloride 101 98 - 110 mmol/L [email or web address] CO2 26 20 - 32 mmol/L [email or web address] Calcium 9.4 8.6 - 10.3 mg/dL [facility] Protein, sr 7.4 6.1 - 8.1 g/dL [facility] Albumin 3.8 3.6 - 5.1 g/dL [facility] GLOBULIN 3.6 1.9 - 3.7 g/dL (calc) [facility] Alb/glob ratio 1.1 1.0 - 2.5 (calc) [facility] Bilirubin, total 0.5 0.2 - 1.2 mg/dL [facility] Alk phos 87 35 - 144 U/L [facility] AST 17 10 - 35 U/L [facility] ALT (SGPT) 18 9 - 46 U/L [facility] Blood 06/18/2024 7:49 AM CDT 06/18/2024 7:49 AM CDT Alberto Morris MD LAB BLOOD ORDERABLES F inal Result [facility] [address] [place] [address] * PSA screen (07/06/2023 7:29 AM CDT) PSA 0.36 < OR = 4.00 ng/mL [facility] Comment: The total PSA value from this assay system is standardized against the WHO standard. The test result will be approximately 20% lower when compared to the equimolar-standardized total PSA (Malcolm [place]). Comparison of serial PSA results should be [...] ORDERABLES Florina l Result Performing Organization Address City/[facility]/ZIP Co de Phone Number [facility] [address] [place] [address] from Last 3 Months or Most Recently Relevant to Health Maintenance Insurance [facility] MEDICARE ADVANTAGE UHC MEDICARE ADVANTAGE Care Teams Bingo Checker Relationship Specialty Start Date End Date Wesley Bailey MD [address] [address] PCP - General Family Medicine 11/22/21
--- OUTSIDE RECORDS SUMMARY | 2024-07-24 04:42 | XMS_ITS | Clinical Summary ---
Author Organization [facility] Address [address] [place] [address] Care Team Providers Care Appliance Servicer Name Role Phone Wesley Bailey MD Primary Care Provider [phone] Allergies No known active allergies Medications levothyroxine [...] 022 Assessment & Plan (01/16/2023 8:21 PM REAL ESTATE AGENCY PRINCIPAL): 66 y.o. male with history of severe [...] stable compared to 03/06.Started on dupixent by [facility] Pulmonology on 03/14/22 with good [...] being read as more consistent with sarcoidosis -[facility] PRN Assessment & Plan (09/13/2022 11:33 [...] stable compared to 03/06.Started on dupixent by [facility] Pulmonology on 03/14/22 with good [...] Department Care Team Description 06/20/2024 Orders Only [facility]monary [address] [facility] 8th [place] [address] [place] [address] Alberto Morris MD Sarcoidosis (Primary Dx); High risk medication use from Last 3 Months Immunizations Immunization Administration Dates Next Due Influenza, Quadrivalent, Hig h Dose, Preservative Free, Intrr 11/20/2022 Influenza, Trivalent, Preservative Free, Intramu scular 11/12/2014 Surgical History Surgery Date Site/Laterality Comments PA TONSILLECTOMY PRIMARY/SECONDARY <AGE 14 Tonsillectomy - (Added by TW Conv) PA ARTHRD ANT INTERBODY MIN DSC LUMBAR Lumbar [...] on file Legal Sex Male 9:09 PM REAL ESTATE AGENCY PRINCIPAL Gender Identity Not on file Sexual Orientation Not on file Obstetrics History Last Filed Vital Signs Vital Sign Reading Time Taken Comments Blood Pressure 126/78 01/21/2024 11:55 AM REAL ESTATE AGENCY PRINCIPAL Pulse 80 01/21/2024 11:55 AM REAL ESTATE AGENCY PRINCIPAL Temperature 37.1 C (98.7 F) 01/21/2024 11:55 AM REAL ESTATE AGENCY PRINCIPAL Respiratory Rate 20 01/21/2024 11:55 AM REAL ESTATE AGENCY PRINCIPAL Oxygen Saturation 94% 01/21/2024 11:55 AM REAL ESTATE AGENCY PRINCIPAL Inhaled Oxygen Concentration - - Weight 128.4 kg (283 lb) 01/21/2024 11:55 AM REAL ESTATE AGENCY PRINCIPAL Height 185.4 cm (6' 1) 01/21/2024 11:55 AM REAL ESTATE AGENCY PRINCIPAL Body Mass Index 37.34 01/21/2024 11:55 AM REAL ESTATE AGENCY PRINCIPAL Plan of Treatment Health Maintenance Due Date [...] differential (06/18/2024 7:49 AM CDT) Pathologist [facility] WBC 10.6 3.8 - 10.8 Thousand/u L [...] [facility] Eosinophils 5.2 % [facility] Basophils 1.1 % [facility] Blood 06/18/2024 7:49 AM CDT 06/18/2024 7:49 AM CDT us Alberto Morris MD LAB BLOOD ORDERABLES F inal Result [facility] [address] [place] [address] * (ABNORMAL) Comprehensive metabolic panel (06/18/2024 7:49 AM CDT) Glucose 108(H) 65 - 99 mg/dL [facility] Comment: Fasting reference interval For someone without known diabetes, a glucose value between 100 and 125 mg/dL is consistent with prediabetes and should be confirmed with a follow-up test. BUN 16 7 - 25 mg/dL [facility] Creatinine 0.84 0.70 - 1.35 mg/dL [facility] eGFR 96 > OR = 60 mL/min/1.7 3m2 [facility] BUN/creat ratio SEE NOTE: 6 - 22 (calc) [facility] Comment: Not Reported: BUN and Creatinine are within reference range. Sodium 138 135 - 146 mmol/L [facility] Potassium, pl 4.4 3.5 - 5.3 mmol/L [facility] Chloride 101 98 - 110 mmol/L [facility] CO2 26 20 - 32 mmol/L [facility] Calcium 9.4 8.6 - 10.3 mg/dL [facility] Protein, sr 7.4 6.1 - 8.1 g/dL [facility] Albumin 3.8 3.6 - 5.1 g/dL [facility] GLOBULIN 3.6 1.9 - 3.7 g/dL (calc) [facility] Alb/glob ratio 1.1 1.0 - 2.5 (calc) [facility] Bilirubin, total 0.5 0.2 - 1.2 mg/dL [facility] Alk phos 87 35 - 144 U/L [facility] AST 17 10 - 35 U/L [facility] ALT (SGPT) 18 9 - 46 U/L [facility] Blood 06/18/2024 7:49 AM CDT 06/18/2024 7:49 AM CDT Alberto Morris MD LAB BLOOD ORDERABLES F inal Result [facility] [address] [place] [address] * PSA screen (07/06/2023 7:29 AM CDT) PSA 0.36 < OR = 4.00 ng/mL [facility] Comment: The total PSA value from this assay system is standardized against the WHO standard. The test result will be approximately 20% lower when compared to the equimolar-standardized total PSA (Malcolm [place]). Comparison of serial PSA results should be [...] ORDERABLES Florina l Result Performing Organization Address City/[facility]/ZIP Co de Phone Number [facility] [address] [place] [address] from Last 3 Months or Most Recently Relevant to Health Maintenance Insurance [facility] MEDICARE ADVANTAGE UHC MEDICARE ADVANTAGE Care Teams Appliance Servicer Relationship Specialty Start Date End Date Wesley Bailey MD [address] [address] PCP - General Family Medicine 11/22/21
[2024-07-24] MEDS: LACTATED RINGERS 1,000 ML 30 ML IV CONT ×2 (11:00→13:54)
[2024-07-24] MEDS: ACETAMINOPHEN 500 MG TABLET 1000 MG PO (11:03)
[2024-07-24] MEDS: KETOROLAC 15 MG/ML VIAL (*BKC) IV PUSH (11:03)
--- NOTE | 2024-07-24 12:21 | WPDHPUPDATE1 ---
History and Physical Update Update Date/Time: 07/24/24 12:21 History and Physical has been reviewed, including an updated exam of the patient. There are NO changes in the patient's condition. Risks, benefits, and alternatives have been discussed and questions answered. Patient agrees to proceed with procedure.
--- NOTE | 2024-07-24 12:23 | P.PNAN_ITS ---
Anes - Initial Pre Proc Eval Procedure: Operation Date: 07/24/24 12:30 Proposed Procedures p Laparoscopic Cholecystectomy - Andreas Luque MD Date/Time: 07/24/24 12:23 Surgeon: Andreas Luque MD Pre Op Diagnosis: Chronic cholecystitis Patient Data Age: 68 Gender: M Height: 1.85 m Weight: 106.4 kg Last Vital Signs Temp 97.5 F L 07/24/24 10:45 Pulse 76 07/24/24 10:45 Resp 16 07/24/24 10:45 BP 134/72 07/24/24 10:45 Pulse Ox 96 07/24/24 10:45 O2 Del Method Room Air 07/24/24 10:45 Allergies Allergy/AdvReac Type Severity Reaction Status Date / Time No Known Allergies Allergy Unknown Verified 07/24/24 11:17 Home Medications ?Medication ?Instructions ?Recorded ?Confirmed ?Type albuterol sulfate 90 mcg/actuation 2 puff inhalation Q4H PRN 12/15/19 07/08/24 Rx aerosol inhaler (Ventolin HFA) bronchospasm #54 grams ibuprofen 200 mg capsule 400 mg PO Q6H PRN Pain 10/04/21 07/24/24 History dupilumab 300 mg/2 mL subcutaneous 300 mg subcut [id number] 04/18/22 07/08/24 History pen injector (Dupixent) budesonide-formoterol HFA 160 2 puff inhalation Q12H 06/12/22 07/24/24 History mcg-4.5 mcg/actuation aerosol inhaler (Symbicort) gabapentin 800 mg tablet 800 mg PO BID PRN NEUROPATHY 07/11/23 07/24/24 History folic acid 1 mg tablet 1 mg PO DAILY methotrexate 10/15/23 07/08/24 History irbesartan 150 mg tablet 150 mg PO DAILY #90 tabs 12/03/23 07/24/24 Rx methotrexate sodium 2.5 mg tablets 15 mg PO WEEKLY 02/20/24 07/08/24 History in a dose pack tramadol 50 mg tablet 50 mg PO Q6H PRN pain #40 tabs 06/03/24 07/08/24 Rx atorvastatin 20 mg tablet 20 mg PO QHS #90 tabs 06/17/24 07/24/24 Rx levothyroxine 200 mcg tablet 200 mcg PO DAILY 07/08/24 07/24/24 History (Levoxyl) Patient hx anesthesia problems: none Family hx anesthesia problems: none Results Review: All pre-operative results and documents have been reviewed as part of the pre- operative evaluation. [facility] Past Medical History Medical History Gallbladder disorder Asthma Allergies BMI 33.0-33.9,adult Immunity to measles, mumps, and rubella determined by serologic test (06/05/24) Patient has Immunity to measles, mumps, and rubella on 06/05/2024. Recurrent biliary colic HIDA scan on 06/07/2023 reveals gallbladder dysfunction with ejection fraction 10%. Benign paroxysmal positional vertigo due to bilateral vestibular disorder Sarcoidosis of lung (~2023) treated by associate entertainment editor At low risk for fall Mixed hyperlipidemia cholesterol 211, triglycerides 88, HDL 59, LDL 133 with ratio 3.6 on 07/06/2023. cholesterol 141, triglycerides 99, HDL 44, LDL 79 with ratio 3.2 on 03/14/2024. Bilateral chronic knee pain Chronic pain of left ankle Nail fungus Essential hypertension (11/14/21) Nondisplaced fracture of medial malleolus left ankle Arthritis BMI 35.0-35.9,adult Obesity (BMI 35.0-39.9 without comorbidity) BPH without obstruction/lower urinary tract symptoms Vitamin B12 deficiency anemia (04/28/21) level low at 368 with goal greater than 400 with hemoglobin 14.3 on 04/28/2021. vitamin B12 1064 with hemoglobin 14.7 on 09/20/2021. Level normal at 12 119 on 06/08/2022 with hemoglobin 13.4. BMI 36.0-36.9,adult Skin tags, multiple acquired Candidiasis Abdominal pain Viral pneumonia Encounter for screening for other viral diseases Acute bronchitis Abnormal fasting glucose Fasting glucose 86 with hemoglobin A1c normal at 5.6 on 04/28/2021. Glucose 95 on 09/20/2021. Hemoglobin A1c 5.7 on 06/08/2022. Glucose 104 with hemoglobin A1c 6.1 with GFR 92 on 03/14/2024. Seasonal allergic rhinitis Contracture of joint of finger Injury of extensor tendon of left hand Perianal rash Benign colon polyp Repeat colonoscopy on 10/23/2022 with large pedunculated sigmoid Tubular adenoma polyp with recheck in 3 years. Hypothyroidism, unspecified TSH suppressed at 0.05 with free T4 elevated at 1.9 with T3 total 121 on 04/28/2021. TSH 0.36 with free T4 1.4 on 09/20/2021. TSH 3.16 with free T4 1.4 on 06/08/2022. TSH 14.87 on 03/14/2024. TSH 0.36 on 06/05/2024. Laceration of left index finger with complication Prostate cancer screening PSA normal at 0.33 on 04/28/2021. PSA 0.36 on 06/08/2022. Colon cancer screening Neuropathy of both feet Small fiber peripheral neuropathy on EMG and nerve conduction study. Compression fracture of lumbosacral spine with routine healing Obstructive sleep apnea Mild intermittent asthma PFT on 06/02/2021 with moderate obstructive defect with no significant bronchodilator effect. Hypothyroid Surgical History Surgical History History of back surgery Nov 2014 Family History Family History Mother Asthma Diabetes mellitus Alcoholism Father Diabetes mellitus Heart disease Hypertension Grandparent Cancer Grandparent Heart disease Grandparent No problems noted. Grandparent Diabetes mellitus Sibling Diabetes mellitus Breathing problem Depression Sibling Breast cancer Sibling Hypertension Social History Social History Smoking status: Never smoker Alcohol intake: current Alcohol use details: 2-3 drinks per month Substance use: never Substance use type: does not use Do You Feel Safe in your Home?: Yes Lack of Transportation: No Lack of Food: Never True Current Housing: I Have Housing Concerned About Future Housing: No Difficulty Paying Gas/Electric Bills: No Difficulty Paying for Meds: No Currently Unemployed: No Education: Trade/Vocational Certificate Difficulty w/ Childcare or Family Care: No Living arrangements: with family Additional living arrangements comments: Occupation/Education: retired 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/education 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 Informed Consent: The patient's anesthetic plan and its attendant risks and benefits were discussed with the patient/family/POA. Questions were solicited and answers provided to the satisfaction of the patient/family/POA.
[2024-07-24] MEDS: ceFAZolin 2 GM/D5W 50 ML 2 GM/50 ML BAG IVPB (12:34)
[2024-07-24] MEDS: BUPIVACAINE/EPINEPHRINE 0.5% 50 ML VIAL 30 ML INFILTRATE (12:49)
--- NOTE | 2024-07-24 13:29 | S_PTH ---
PATIENT: Nelson Yanes LOC: [facility] U#:[id number] AGE/SX: 68/M ROOM: RE07/24/[address]: Andreas Luque MD : 1955 BED: DIS: 07/24/2024 SPEC #: [id number] RECD: 07/25/24 08:31 STATUS: DESIREE REQ #: [id number] KARLA: 07/24/24 13:[address]: Andreas Luque DEPT: [facility] Surgical RECD BY: Kenya Brownlee ENTERED: 07/25/24 08:31 SP TYPE: Surgical OTHR DR: Wesley Bailey MD Tissues: A - Gallbladder Procedures: Hematoxylin and Eosin Stain Gross and Microscopic Level 3
--- NOTE | 2024-07-24 15:43 | W.PM.PROC2 ---
Procedure Note - Detailed Date of Procedure 07/24/24 Pre-op Diagnosis Chronic cholecystitis Post-op Diagnosis Same Procedure Performed Laparoscopic cholecystectomy Surgeon Andreas Luque MD Crime Data Specialist Yenifer JAIMES Anesthesia General and Local Indications Patient has had postprandial right upper quadrant abdominal pain for least 2-3 years. It is worse after fatty meals. His ultrasound has repeatedly been negative for gallstones or chronic inflammation. He did have a HIDA scan that showed a very low gallbladder ejection fraction of only 10%. He is taken to surgery now for laparoscopic cholecystectomy. Findings Chronic inflammation noted, fatty liver, no biliary ductal dilatation. Description of Procedure Patient was taken to surgery and induced into general anesthesia. The abdomen is prepped and draped. Trocars were placed in the usual fashion using [employer] optical trocars and a 5 mm camera. The gallbladder was decompressed with a laparoscopic aspirator. The cholecystotomy was closed with a Vicryl endoloop. We had to place a 5th 5 mm trocar in the left mid abdomen. This was to retract the duodenum and transverse colon so that the gallbladder could be adequately visualized. This retractor was also used to retract the medial segment of the left lobe of the liver away from the edge of the gallbladder to facilitate dissection of the gallbladder from the liver. The gallbladder was then retracted anterosuperiorly. Dissection was carried out in the cholecystohepatic triangle. The cystic duct and cystic artery were dissected out clearly. The gallbladder was dissected off the liver at its lower 3rd. Critical view was achieved. We then securely clipped and divided the cystic artery and cystic duct. I then continued dissecting the gallbladder free of its peritoneal and other attachments to the liver. The gallbladder was not entered. There was no significant bleeding although some of the superficial liver stuck to the gallbladder wall during the dissection. Eventually the gallbladder was completely freed from the liver. We kept the gallbladder retracted anterosuperiorly and I used cautery on some of the small areas of bleeding in the gallbladder fossa. The gallbladder was then extricated through the epigastric trocar site with the Endo-Catch bag. I had to enlarge the epigastric trocar site both at the skin level and at the fascial level to accommodate the gallbladder. Once the gallbladder was removed, I replaced the epigastric trocar and we reviewed the right upper quadrant and gallbladder fossa. Irrigation and suctioning were carried out. All looked good with no evidence of bleeding or bile leakage. I then used the Christian cone and closed the fascia to the epigastric trocar site with 0 Vicryl suture. CO2 was evacuated and the trocars were then removed. I closed the subcutaneous with 4-0 Vicryl at the epigastric trocar site. All skin incisions were closed with running 4-0 Monocryl skin suture. Wounds were dressed with Exofin surgical adhesive. Patient was then awakened and taken to recovery in good condition. Sponge needle counts were correct x2. Estimated Blood Loss -10 Drains No Packing No Pathology Yes (Gallbladder) Complications None Condition Stable Disposition PACU [facility] Billing Surgery - Charge Forward: Surgery Billing (Laparoscopic cholecystectomy)
== END 2024-07-24 16:17 | disposition home or self-care (01) ==
PROVIDERS: PCP Family Medicine; Visit Provider Surgery
PROC: 0FT44ZZ Resection of Gallbladder, Percutaneous Endoscopic Approach (ICD-10-PCS; CPT 47562; principal; 2024-07-24 12:30)
DX: K82.8 Other specified diseases of gallbladder (principal); E66.9 Obesity, unspecified; Z68.30 Body mass index [BMI] 30.0-30.9, adult
CPT/HCPCS: 47562; 88304; A9270; J0690; J1100; J1171; J1885; J2003; J2250; J2371; J2405; J2704; J3010; J7030; J7120